=== PATIENT | male | born 1955 | race Caucasian/White ===

== ENCOUNTER 2021-07-13 07:32 | Outpatient (REF) | payer MEDICARE, OTHER, SELFPAY ==
[2021-07-13 11:21] LABS: MANUAL DIFF FLAG NO
[2021-07-13 11:41] LABS: Basophils Percent Auto 0.5 % (0-2); Eosinophils Absolute Auto 0.1 X10*3/uL (0.0-0.4); Hematocrit 41.4 % (42-52); Hemoglobin 13.6 g/dl (14.0-18.0); Imm Gran Abs Auto 0.01 X10*3/uL (0.00-0.03); Imm Gran Pct Auto 0.3 % (0.0-0.4); Lymphocytes Absolute Auto 1.1 X10*3/uL (1.2-4.9); Lymphocytes Percent Auto 29.5 % (20-40); Mean Corpuscular HGB Conc 32.9 g/dl (31.0-36.0); Mean Corpuscular Hemoglobin 28.9 pg (27.0-33.0); Mean Corpuscular Volume 87.9 fL (80-98); Mean Platelet Volume 10.1 fL (9.4-12.4); Monocytes Absolute Auto 0.6 X10*3/uL (0.1-1.2); Monocytes Percent Auto 14.9 % (2-11); Neutrophils Absolute Auto 1.9 X10*3/uL (2.0-8.3); Neutrophils Percent Auto 51.8 % (45-73); Platelet Count 210 X10*3/uL (160-400); Red Blood Count 4.71 X10*6/uL (4.60-5.80); Red Cell Distribution Width 13.7 % (11.0-16.0); White Blood Count 3.7 X10*3/uL (4.8-10.8)
[2021-07-13 14:45] LABS: Vitamin D 25-OH Total 23.3 ng/mL (>30)
[2021-07-13 14:50] LABS: Alanine Aminotransferase 24 U/L (0-40); Albumin Level 4.1 g/dL (3.5-5.0); Alkaline Phosphatase 49 U/L (39-117); Anion Gap 10 (12-20); Aspartate Amino Transferase 21 U/L (5-37); Bilirubin Total 0.6 mg/dL (0.0-1.0); Blood Urea Nitrogen 18 mg/dL (9-16); Calcium 8.7 mg/dL (8.4-10.2); Carbon Dioxide 25 mmol/L (22-29); Chloride 110 mmol/L (96-108); Cholesterol 224 mg/dL; Estimated Glomerular Filt Rate > 60; Glucose Fasting 106 mg/dL (60-99); HDL Cholesterol 48 mg/dL; LDL Cholesterol Calculated 153 mg/dl; Potassium 4.1 mmol/L (3.3-5.1); Sodium 141 mmol/L (135-145); Total Protein 6.4 g/dL (6.5-8.0); Triglycerides 115 mg/dL
[2021-07-13 15:17] LABS: Prostate Specific Antigen 0.63 ng/mL (<0.05-4.0)
[2021-07-14 04:45] LABS: ~HepC Num1 0.06 S/CO (0.00-0.79); ~Hepatitis C Antibody Nonreactive (Nonreactive)
== END 2021-07-13 07:33 | disposition home or self-care (01) ==
LOC: HO.MANLDS 07:32
PROVIDERS: PCP Internal Medicine; Visit Provider Internal Medicine
DX: Z00.00 Encounter for general adult medical examination without abnormal findings (principal); Z12.5 Encounter for screening for malignant neoplasm of prostate
CPT/HCPCS: 36415; 80053; 80061; 82306; 84153; 85025; 86803

== ENCOUNTER 2022-07-19 07:42 | Outpatient (REF) | payer MEDICARE, OTHER, SELFPAY ==
[2022-07-19 11:36] LABS: Cholesterol 202 mg/dL; HDL Cholesterol 46 mg/dL; LDL Cholesterol Calculated 139 mg/dl; Triglycerides 87 mg/dL
[2022-07-19 11:58] LABS: Prostate Specific Antigen 0.57 ng/mL (<0.05-4.0); Vitamin D 25-OH Total 26.5 ng/mL (>30)
== END 2022-07-19 07:43 | disposition home or self-care (01) ==
LOC: HO.MANLDS 07:42
PROVIDERS: Visit Provider Internal Medicine
DX: Z00.00 Encounter for general adult medical examination without abnormal findings (principal); Z12.5 Encounter for screening for malignant neoplasm of prostate
CPT/HCPCS: 36415; 80061; 82306; 84153

== ENCOUNTER 2024-07-25 06:37 | Outpatient (REF) | payer MEDICARE, OTHER, SELFPAY ==
--- NOTE | ~2024-07-25 | XR_ITS ---
EXAMINATION: XR KNEE, RIGHT CLINICAL INFORMATION: Right knee pain COMPARISON: None available. TECHNIQUE: Three views of the right knee. FINDINGS: No fracture or malalignment. Medial compartment narrowing and small degenerative cyst of the medial tibia peripherally. Small marginal osteophytes. No joint effusion. Probable small loose body in the posterior joint recess. XR/XR knee RT 3V IMPRESSION: Mild to moderate medial compartment and mild patellofemoral compartment osteoarthritis. No acute osseous abnormality. Electronically signed by: Vlad Olea MD 07/25/2024 08:52 AM EDT
[2024-07-25 07:05] LABS: MANUAL DIFF FLAG NO
[2024-07-25 07:58] LABS: Basophils Percent Auto 0.9 % (0-2); Eosinophils Absolute Auto 0.2 X10*3/uL (0.0-0.4); Eosinophils Percent Auto 3.6 % (0-4); Hematocrit 42.2 % (42.0-52.0); Hemoglobin 14.2 g/dl (14.0-18.0); Imm Gran Abs Auto 0.01 X10*3/uL (0.00-0.03); Imm Gran Pct Auto 0.2 % (0.0-0.4); Lymphocytes Absolute Auto 1.3 X10*3/uL (1.2-4.9); Lymphocytes Percent Auto 29.8 % (20-40); Mean Corpuscular HGB Conc 33.6 g/dl (31.0-36.0); Mean Corpuscular Hemoglobin 29.2 pg (27.0-33.0); Mean Corpuscular Volume 86.8 fL (80.0-98.0); Mean Platelet Volume 9.9 fL (9.4-12.4); Monocytes Absolute Auto 0.5 X10*3/uL (0.1-1.2); Monocytes Percent Auto 11.2 % (2-11); Neutrophils Absolute Auto 2.4 x10*3/uL (2.0-8.3); Neutrophils Percent Auto 54.3 % (45-73); Platelet Count 231 X10*3/uL (160-400); Red Blood Count 4.86 X10*6/uL (4.60-5.80); Red Cell Distribution Width 13.8 % (11.0-16.0); White Blood Count 4.5 X10*3/uL (4.8-10.8)
[2024-07-25 08:23] LABS: Alanine Aminotransferase 16 U/L (0-40); Albumin Level 4.3 g/dL (3.5-5.0); Alkaline Phosphatase 49 U/L (39-117); Anion Gap 12 (12-20); Aspartate Amino Transferase 17 U/L (5-37); Bilirubin Total 0.5 mg/dL (0.0-1.0); Blood Urea Nitrogen 18 mg/dL (9-16); Carbon Dioxide 23 mmol/L (22-29); Chloride 109 mmol/L (96-108); Cholesterol 210 mg/dL (<200); Estimated Glomerular Filt Rate > 60; Glucose Random 106 mg/dL (60-115); HDL Cholesterol 47 mg/dL (>40); LDL Cholesterol Calculated 136 mg/dL (<100); Potassium 3.9 mmol/L (3.3-5.1); Sodium 140 mmol/L (135-145); Triglycerides 137 mg/dL (<150)
[2024-07-25 08:43] LABS: Prostate Specific Antigen 0.71 ng/mL (<0.05-4.0); Vitamin B12 371 pg/mL (200-900)
== END 2024-07-25 06:38 | disposition home or self-care (01) ==
LOC: HO.XRAY 06:37
PROVIDERS: PCP Internal Medicine; Visit Provider Internal Medicine
DX: M25.561 Pain in right knee (principal); E78.00 Pure hypercholesterolemia, unspecified; Z12.5 Encounter for screening for malignant neoplasm of prostate; Z00.01 Encounter for general adult medical examination with abnormal findings
CPT/HCPCS: 36415; 73562; 80053; 80061; 82607; 84153; 85025

== ENCOUNTER 2025-07-30 11:35 | Outpatient (REF) | payer MEDICARE, OTHER, SELFPAY ==
--- OUTSIDE RECORDS SUMMARY | 2025-07-30 14:41 | XMS_ITS | Continuity of Care Document ---
Author Organization [facility] Address [address] [place] [address] [place] [address] Assessment Encounter Date Assessment Date Assessment LastModified by Organization Details LastModified Time 07/30/2025 07/30/2025 Patient presente d to office today for their Medicare Annual Wellness Visit. Education was provided on healthy nutrition, including a diet rich in fruits and vegetables, minimizing simple carbohydrates, salt, and saturated fats. Encouraged regular cardiovascular exercise such as walking at least 30 minutes daily, 5 times per week. Emphasized preventive health measures and educated pt on fall prevention and community-based lifestyle interventions to help reduce health risks and promote healthy living. Not available 07/09/2025 14:14:08 Plan of Treatment Reminders Order Date Submit Date Provider Last Modified By Organization Details Last Modified Time Details Appointments MEDICARE ANNUAL WELLNESS 2024 11:00A M DR MURRAY Not available Not available Not available Lab PSA, serum or plasma 2024 025 [facility], [address] [place] [address], [id number], 07/30/2025 11:29:34 lipid panel, blood 2024 025 [facility], [address] [place] [address], [id number], 07/30/2025 11:29:34 hemoglobi n, gastroint estinal, stool 2024 025 [facility], [address] [place] [address], [id number], 07/30/2025 11:29:34 CBC w/ auto diff 2024 025 [facility], [address] [place] [address], [place], [id number], 07/30/2025 11:29:34 CMP, serum or plasma 2024 025 [facility], [address], [place], [id number], 07/30/2025 11:29:34 Referral None recorded. Procedures None recorded. Surgeries None recorded. Imaging None recorded. Medication Orders None recorded. Patient TargetsNo targets recorded. Patient Instructions Encounter Date Encounter Id Patient Instructions Last Modified By Organization Details Last Modified Time 07/30/2025 [id number] advance care planning: care instructions [email or web address] Not available 07/30/2025 11:28:16 Discussed and explained advance directives such as standard forms to the . Face to face discussion lasted for a duration of ___ minutes. Not available 07/09/2025 14:14:08 Reason for Referral None Reported. Problems Name Problem SNOMED Code Status Onset Date Resolution Date Notes Provider Name and Address Organization Details Recorded Time Internal hemorrho ids 32475964 Active 2017 Peyton balbuena [facility] 8 08:41:58 Tear of meniscus of knee 540385487 Active 2017 repaired Peyton balbuena [facility] 8 08:42:12 Family history of malignan t neoplasm of prostate 388682576 Active 2017 Peyton balbuena [facility] 8 08:42:22 Hypercho lesterol emia 24279912 Active 2017 Giacomo Murray DO [address] [place], [address], [facility] 5 11:24:54 Pain of right knee joint 80434864879 4100 Active 2023 Giacomo Murray DO [address] [place], [address], [place] [facility] 4 10:49:43 Benign prostati c hyperpla jordy without outflow obstruct ion 853734739 Active 2024 Giacomo Murray [address] [place], [address], [facility] 5 11:27:55 Tick bite 26123101 Active 2024 Giacomo MurrayDO [address] [place], [address], [facility] 11:52:59 Problem Notes None recorded. Medical Equipment None Reported. Allergies No known drug allergies Medications Name Sig Start Date Stop Date Status Note LastModified by Organization Details LastModified Time penicillin V potassium 500 mg tablet 05/17 completed Not Available Not Available Not Available halobetasol propionate 0.05 % topical cream APPLY A THIN LAYER TO THE AFFECTED AREA(S) BY TOPICAL ROUTE ONCE DAILY DO NOT EXCEED 50 GRAMS PER WEEK OR 2 WEEKS DURATION 12/01 completed Not Available Not Available Not Available doxycycline hyclate 100 mg tablet Take 1 tablet twice a day by oral route for 10 days. 2024 active Not Available Not Available Not Avai lable Boostrix Tdap 2.5 Lf unit-8 mcg-5 Lf/0.5 mL intramuscul ar syringe 12/27 completed Not Available Not Available Not Available Shingrix (PF) 50 mcg/0.5 mL intramuscul ar suspension, kit 12/27 completed Not Available Not Available Not Available Vitals Date Recorded Body height Body mass index (BMI) Body weight Heart rate Oxygen saturation Oxygen saturation in Arterial blood by Pulse oximetry Systolic And Diastolic Provider Name and Address Organization Details Last Updated DateTime 5 170.18 cm 29.1 kg/m2 07160.4 6 g 46 /min 98 % 98 % 154/96 mm[Hg] Laury Schulz [facility] 5 10:54:54 Social History Question Answer Notes LastModified by Organizat ion Details LastModified Time Tobacco Smoking Status Never Smoker Not Available [employer] 08/26/2020 03:36:24 What Was The Date Of Your Most Recent Tobacco Screening? 07/30/2025 [email or web address] Information not available 07/30/2025 Sex: Unknown Functional Status Question Answer Note LastModified by Organization D etails LastModified Time Do you or have you ever used any other forms of tobacco or nicotine? No [email or web address] Information not available 07/19/2023 Mental Status None recorded. Family History Nothing Reported. Medical History No medical history recorded. Immunizations Vaccine Type Date Status Note Provider Nam e and Address Organization Details Recorded Time COVID-19, mRNA, LNP-S, PF, 30 mcg/0.3 mL dose 1 completed SHERRON balbuena [facility] 07/13/2022 08:48:01 Influenza, split virus, quadrivalent, preservative 9 completed SHERRON balbuena [facility] 07/13/2022 08:48:01 Tdap 9 olivia balbuena [facility] 07/10/2019 09:06:27 Pneumococcal conjugate PCV 13 9 completed SHERRON balbuena [facility] 07/13/2022 08:48:01 zoster live 9 completed Peyton balbuena [facility] 07/10/2019 09:06:58 Past Encounters Encounter ID Performer Location Encounter Start Date Encounter Closed Date Diagnosis/Indication Diagnosis SNOMED-CT Code Diagnosis ICD10 Code Diagnosis IMO Codes Diagnosis Note [id number] Giacomo Murray [facility] [address] [address] 07/30/2025 10:25:25 07/30/2025 11:42:43 Screening for cardiovascular system disease 535386540 Z13.6 will chk lab Screening for malignant neoplasm of colon 366762875 Z12.11 utd Depression screening 171 390821 Z13.31 neg Hypercholesterolemia 136 55005 E78.00 mild but is sl elevated will be better with diet after long discussion LDL 141 will see him in 6 months and rechk lab cholestero l is unchanged from last year told him he really needs to be more careful Preventive procedure 169 057576 Z00.00 [id number] no concerns today he states that he will work on diet and exercise Benign pro static hyperplasia without outflow obstruction 156889913 N40.0 [id number] Health Concerns Section Related Observation LastModified by Organization Detai ls LastModified Time None Recorded Concern Status LastModified by Organization Details LastModified Time None Recorded Payers Encounter Date Sequence Insurance Name Policy Number Policy Kidd Covered Member ID Kidd Member ID Guarantor Name 07/30/2025 2 [id number] Mirella Alvarezmarco antoniojosefina [id number] Suhas Eusebio 07/30/2025 1 [place]IC[place] [employer] Suhas Kaplan [id number] Suhas Kaplan Notes Date Note Type Note Provider Name a nd Address Organization Details Recorded Time 5 text/html Medicare Annual Wellness VisitReported by PatientSocial/Behavio ral HistoryFor diet and nutrition, patient reportshealthy diet. For fracture risk, patient reportsno history of fractures,no recent explained fracture,no sudden unexplained fractures, andno previous musculoskeletal injuries. For physical activity, patient reportsexercises on a regular basis,recent increase in physical activity, andgood physical condition.Mental Status:For depression risk, patient reportsnever feels sad, empty, or tearful,no loss of interest in activities,no significant changes in weight,no sleep disturbances or insomnia,no agitation,no loss of energy,no feelings of worthlessness or guilt,no thoughts of suicide,no history of depression, andno history of mood disorders. For orientation, patient reportsno disorientation to time,no disorientation to date, andno disorientation to place. For concentration and memory, patient reportsno decreased concentrating ability,no memory lapses or loss, anddoes not forget words. For speech/motor difficulties, patient reportsno speech difficulties,no difficulty expressing formulated concepts,no difficulty with fine manipulative tasks,no difficulty writing/copying,no slowed reaction time, anddoes not knock things over when trying to pick them up.Functional AbilityFor hearing, patient reportsno loss of hearing. For vision, patient reportsno vision problems. For activities of daily living, patient reportsable to bathe with limited or no assistance,able to contol urination and bowels,able to dress with limited or no assistance,able to feed self with limited or no assistance,able to get out of chair or bed with limited or no assistance,able to groom with limited or no assistance, andable to toilet with limited or no assistance. For instrumental activities of daily living, patient reportsable to do house work with limited or no assistance,able to grocery shop with limited or no assistance,able to manage medications with limited or no assistance,able to manage money with limited or no assistance,able to prepare meals with limited or no assistance, andable to use the phone with limited or no assistance. For falls risk assessment, patient reportsno frequent falls while walking,no fall in the past year,no fall since last visit, andno dizziness/vertigo. For home safety, patient reportsno unsafe maday hazzards,no unsafe stairs,no unsafe gas appliances,working smoke/co detectors,wears protective head gear for biking/high velocity,use of seatbelts,practicing 'safer sex',no vision or hearing loss while driving,no fire arms,has hand bars in the bathroom/shower, andgood lighting in the home.ROS as noted in the HPI here for mwv doing ok overallrelates still extremely activehaving floaters Giacomo Murray, DO [address], [place], [address], [facility] 07/30/2025 11:34:12
--- OUTSIDE RECORDS SUMMARY | 2025-07-30 14:41 | XMS_ITS | Clinical Summary ---
Author Organization [facility] Address [address] [place] [address] Phone Care Team Providers Care Painter Chassis Name Role Phone Giacomo Howard DO Primary Care Provider [phone] Social History Tobacco Use Types Packs/Day Years Used Date Smoking Tobacco: Never Assessed Education Answer Date Recorded Are you interested in more education? Not on alona e 02/18/2023 Are you concerned about learning? Not on file 02/18/2023 No 02/18/2023 No 02/18/2023 Digital Access Answer Date Recorded No 03/21/2023 No 03/21/2023 No 03/21/2023 Reliable internet access at home? Not on file 03/21/2023 Device with a working camera? Not on file Sex and Gender Information Value Date Recorded Sex Assigned at Not on file Legal Sex Male 2:00 AM EST Gender Identity Not on file Sexual Orientation Not on file Plan of Treatment Not on file Medical Devices Not on file Insurance [facility] [employer] MEDICARE SUPPLEMENT MEDICARE PART A & B [facility] [employer] MED[employer]ARE SUPPLEMENT MEDICARE PART A & B [facility] [employer] MEDICARE SUPPLEMENT MEDICARE PART A & B [facility] [employer] MEDICARE SUPPLEMENT MEDICARE PART A & B [facility] [employer] MEDICARE SUPPLEMENT MEDICARE PART A & B [facility] [employer] MEDICARE SUPPLEMENT MEDICARE PART A & B [facility] [employer] MEDICARE SUPPLEMENT MEDICARE PART A & B [employer] MEDICARE SUPPLEMENT MEDICARE PART A & B [employer] MEDICARE SUPPLEMENT MEDICARE PART A & B Care Teams Painter Chassis Relationship Specialty Start Date End Date Giacomo Howard DO [email or web address] PCP - General Internal Medicine 08/12/20 Additional Source Comments The information contained in this document represents components of the legal health record. It is not the complete legal health record.[facility]
--- OUTSIDE RECORDS SUMMARY | 2025-07-30 14:41 | XMS_ITS | Data Portability ---
Author Organization [facility], Telehealth Patient Home Address [address] [place] [address] Assessment Encounter Date Assessment Date Assessment LastModified [...] Lab PSA, serum or plasma 2024 025 [facility], [address] [place] [address], [id number], 07/30/2025 11:29:34 lipid panel, blood 2024 025 [facility], [address] [place] [address], [place], [address], 07/30/2025 11:29:34 hemoglobi n, gastroint estinal, stool 2024 025 [facility], [address] [place] [address], [address], 07/30/2025 11:29:34 CBC w/ auto diff 2024 025 [facility], [address] [place] [address], [address], 07/30/2025 11:29:34 CMP, serum or plasma 2024 025 [facility], [address] [place] [address], [address], 07/30/2025 11:29:34 lipid panel, blood 2023 024 [facility], [address] [place] [address], [address], 07/25/2024 11:18:59 CMP, serum or plasma 2023 024 [facility], [address] [place] [address], [address], 07/25/2024 11:18:59 CBC w/ auto diff 2023 024 [facility], [address] [place] [address], [address], 07/25/2024 11:19:00 PSA, serum or plasma 2023 024 [facility], [address] [place] [address], [address], 07/25/2024 11:19:00 vitamin B12, serum 2023 024 [facility], [address] [place] [address], [address], 07/25/2024 11:18:59 lipid panel, blood 2022 023 [facility], [place], [address], 07/19/2023 13:20:24 CMP, serum or plasma 2022 023 [facility], [place], [address], 07/19/2023 13:45:50 PSA, serum or plasma 2022 023 [facility], [place], [address], 07/19/2023 13:39:04 CBC 2022 023 [facility], [place], [address], 07/19/2023 09:50:44 lipid panel, blood 2021 022 [facility], [address] [place] [address], [address], 07/20/2022 11:26:10 PSA, serum or plasma 2021 022 [facility], [address] [place] [address], [address], 07/13/2022 09:20:31 vitamin D, 25-hydrox y, total, serum 2021 022 [facility], [address] [place] [address], [address], 07/13/2022 09:20:31 CMP, serum or plasma 2020 021 [facility], [address] [place] [address], [address], 07/14/2021 08:58:18 CBC w/ auto diff 2020 021 [facility], [address] [place] [address], [address], 07/14/2021 11:17:44 lipid panel, blood 2020 [facility], [address] [place] [address], [address], 07/14/2021 08:58:18 PSA, serum or plasma 2020 021 [facility], [address] [place] [address], [address], 07/14/2021 11:17:43 vitamin D, 25-hydrox y, total, serum 2020 021 [facility], [address] [place] [address], [address], 07/14/2021 11:17:44 hepatitis C Ab, serum 2020 021 [facility], [address] [place] [address], [address], 07/07/2021 10:55:48 Referral None recorded. Procedures None recorded. Surgeries None recorded. Imaging XR, knee, 3 view 2023 024 [facility] (Imaging), [address] [place] [address], [address], 07/25/2024 08:56:14 CT, heart, w/o contrast, w/ coronary calcium score 2022 023 [facility], [facility] [place], [address], 07/27/2023 08:05:51 Medication Orders None recorded. Patient TargetsNo targets recorded. Patient Instructions Encounter Date Encounter Id Patient Instructions Last Modified By Organization Details Last Modified Time 07/30/2025 [id number] advance care planning: care instructions [email or web address] Not available 07/30/2025 11:28:16 Discussed and explained advance directives such as standard forms to the . Face to face discussion lasted for a duration of ___ minutes. Not available 07/09/2025 14:14:08 Reason for Referral None Reported. Results Created Date Observation Date Name Description Value Unit Range Abnormal Flag Note LastModifiedBy Organization Detail LastModifiedTime 10/09/12 2308/03/2023 CT, heart , w/o contr ast, w/ coron hamilton calci um score No observ ation record ed. [email or web address] [facility] [address] [place], [address], 08/08/2023 13:29:41 07/25/20 24 07/25/2024 XR, knee, 3 view No observ ation record ed. [email or web address] [facility] (Medical Records) [address] [place], [address], 07/25/2024 10:49:03 Result Notes None recorded. Problems Name Problem SNOMED Code Status Onset Date Resolution Date Notes Provider Name and Address Organization Details Recorded Time Internal hemorrho ids 96591441 [facility] 08:41:58 Tear of meniscus of knee 733225579 Active 2017 repaired Peyton balbuena [facility] 8 08:42:12 Family history of malignan t neoplasm of prostate 945115206 [facility] 2017 [facility] 08:42:22 Hypercho lesterol emia 47898680 Active 2017 Giacomo Murray, [address] [place] [address], [phone], [facility] 5 11:24:54 Pain of right knee joint 44174271315 4100 Active 2023 Giacomo Murray DO [address] [place] [address], [address], [facility] 4 10:49:43 Benign prostati c hyperpla ojrdy without outflow obstruct ion 808113417 Active 2024 Giacomo Murray DO [address] [place] [address], [phone], [facility] 5 11:27:55 Tick bite 73650713 Active 2024 Giacomo Murray DO [address] [place], [address], [facility] 5 11:52:59 Problem Notes None recorded. Medical Equipment [...] height Body mass index (BMI) Body weight Oxygen saturation Oxygen saturation in Arterial blood by Pulse oximetry Heart rate Systolic And Diastolic Provider Name and Address Organization Details Last Updated DateTime 1 170.18 cm 30.2 kg/m2 19758.6 9 g 96 % 96 % 60 /min 140/80 mm[Hg] Lourdes Emmanuel [facility] 1 10:17:15 Date Recorded Body height Body mass index (BMI) Body weight Heart rate Oxygen saturation Oxygen saturation in Arterial blood by Pulse oximetry Systolic And Diastolic Provider Name and Address Organization Details Last Updated DateTime 2 170.18 cm 29.3 kg/m2 38745.4 1 g 52 /min 97 % 97 % 142/88 mm[Hg] Priya Raphael [facility] 2 08:56:19 Date Recorded Body weight Heart rate Oxygen saturation Oxygen saturation in Arterial blood by Pulse oximetry Systolic And Diastolic Provider Name and Address Organization Details Last Updated DateTime 3 42798.3 7 g 50 /min 99 % 99 % 139/80 mm[Hg] Blanca Rios [facility] 3 09:13:55 Date Recorded Body height Body mass index (BMI) Body weight Heart rate Oxygen saturation Oxygen saturation in Arterial blood by Pulse oximetry Systolic And Diastolic Provider Name and Address Organization Details Last Updated DateTime 4 170.18 cm 29.4 kg/m2 54304.3 7 g 51 /min 87 % 87 % 130/80 mm[Hg] Blanca Gabriel [facility] 4 10:16:44 Date Recorded Body height Body mass index (BMI) Body weight Heart rate Oxygen saturation Oxygen saturation in Arterial blood by Pulse oximetry Systolic And Diastolic Provider Name and Address Organization Details Last Updated DateTime 5 170.18 cm 29.1 kg/m2 49933.4 6 g 46 /min 98 % 98 % 154/96 mm[Hg] Laury Schulz [facility] Internal [facility] 5 10:54:54 Social History Question Answer Notes LastModified by Organizat ion Details LastModified Time Tobacco Smoking Status Never [facility]oker Not Available [facility] 03:36:24 What Was The Date Of Your Most Recent Tobacco Screening? 07/30/2025 [email or web address] Information not available 07/30/2025 Sex: Unknown Functional Status Question Answer Note LastModified by Organization D etails LastModified Time Do you or have you ever used any other forms of tobacco or nicotine? No [email or web address] Information not available 07/19/2023 Mental Status None recorded. Family History Nothing Reported. Medical History No medical history recorded. Immunizations Vaccine Type Date Status Note Provider Nam e and Address Organization Details Recorded Time COVID-19, mRNA, LNP-S, PF, 30 mcg/0.3 mL dose 1 completed SHERRON balbuena [facility] 07/13/2022 08:48:01 Influenza, split virus, quadrivalent, preservative 9 completed SHERRON balbuena [facility] 07/13/2022 08:48:01 Tdap 9 completed Peyton balbuena [facility] 07/10/2019 09:06:27 Pneumococcal conjugate PCV 13 9 completed SHERRON balbuena [facility] 07/13/2022 08:48:01 zoster live 9 completed Peyton balbuena [facility] 07/10/2019 09:06:58 Past Encounters Encounter ID Performer Location Encounter Start Date Encounter Closed Date Diagnosis/Indication Diagnosis SNOMED-CT Code Diagnosis ICD10 Code Diagnosis IMO Codes Diagnosis Note [id number] Giacomo Murray [facility] [address] [facility] [address] 05/17/2018 13:47:25 05/17/2018 15:03:52 Hypercholesterolemia 09652965 E78.00 mild but is sl elevated will be better with diet after long discussion Eczema 57217649 L30.9 [id number] Giacomo Murray [facility] [address] [address] 12/01/2018 09:09:41 12/01/2018 09:42:44 Hypercholesterolemia 85669389 E78.00 mild but is sl elevated will be better with diet after long discussion LDL 141 will see him in 6 months and rechk lab [id number] Giacomo Murray [facility] [address] [facility] [address] [address] 06/01/2019 08:58:44 06/01/2019 10:37:20 Hypercholesterolemia 26478401 E78.00 mild but is sl elevated will be better with diet after long discussion LDL 141 will see him in 6 months and rechk lab cholestero l is unchanged from last year told him he really needs to be more careful Hepatitis C screening 41 0212348 Z11.59 Active or passive immunization 515718406 Z23 will get at pharmacy [id number] Giacomo Murray [facility] Internal [facility] [address] [facility] [address] [address] 12/28/2019 11:33:17 12/28/2019 12:12:51 Adult health examination 598642083 Z00.00 no concerns today he states that he will work on diet and exercise Active or passive immunization 387841897 Z23 will get at pharmacy Hepatitis C screening 41 6562050 Z11.59 [id number] Giacomo Murray [facility] Internal Medicine [address] [facility] [address] [address] 07/07/2021 10:07:32 07/07/2021 15:18:06 Active or passive immunization 254392097 Z23 will get at pharmacy Adult heal th examination 444271969 Z00.00 no concerns today he states that he will work on diet and exercise [id number] Giacomo Murray, [facility] Internal Medicine [address] [facility] [address] 07/13/2022 08:47:41 07/13/2022 09:20:10 Active or passive immunization 920338419 Z23 will get at pharmacy Adult [facility] th examination 079848594 Z00.00 no concerns today he states that he will work on diet and exercise [id number] Giacomo Murray, [facility] Internal Medicine [address] [address] 07/19/2023 09:09:31 07/19/2023 09:56:29 Hypercholesterolemia 85913990 E78.00 mild but is sl elevated will be better with diet after long discussion LDL 141 will see him in 6 months and rechk lab cholestero l is unchanged from last year told him he really needs to be more careful [id number] Giacomo Murray [facility] Internal Medicine [address] [address] 07/24/2024 10:09:31 07/24/2024 10:54:46 Active or passive immunization 767933263 Z23 will get at pharmacy Adult [facility] th examination 425277454 Z00.01 no concerns today he states that he will work on diet and exercise Hypercholesterolemia 136 94396 E78.00 mild but is sl elevated will be better with diet after long discussion LDL 141 will see him in 6 months and rechk lab cholestero l is unchanged from last year told him he really needs to be more careful Depression screening 171 504342 Z13.31 neg Pain of ri ght knee joint 4027577771 90094 M25.561 [id number] Giacomo Murray [facility] Internal Medicine [address] [address] 07/30/2025 10:25:25 07/30/2025 11:42:43 Screening for cardiovascular system disease 447611421 Z13.6 will chk lab Screening for malignant neoplasm of colon 024295121 Z12.11 utd Depression screening 171 698422 Z13.31 neg Hypercholesterolemia 136 29919 E78.00 mild but is sl elevated will be better with diet after long discussion LDL 141 will see him in 6 months and rechk lab cholestero l is unchanged from last year told him he really needs to be more careful Preventive procedure 169 482505 Z00.00 06415946 no concerns today he states that he will work on diet and exercise Benign pro static hyperplasia without outflow obstruction 014317208 N40.0 3001128 Health Concerns Section Related Observation LastModified by Organization Detai ls LastModified Time None Recorded Concern Status LastModified by Organization Details LastModified Time None Recorded Advance Directives Directive None Recorded Payers Insurance Date Sequence Insurance Name Policy Number Policy Kidd Covered Member ID Kidd Member ID Guarantor Name 07/27/2025 2 [facility] [id number] Mirella Daniel Eusebio [id number] Suhas Kaplan 06/01/2019 1 [facility] [employer] - [employer] [id number] Mirella Daniel Eusebio [id number] Suhas Kaplan 07/29/2025 1 MEDICARE B-[place]: [facility] Suhas Strauss Eusebio [id number] Suhas Kaplan Notes Date Note Type Note Provider Name a nd Address Organization Details Recorded Time 1 text/html Annual WellnessReported by PatientSocial/Behavio ral HistoryFor diet and nutrition, patient reportshealthy diet. For fracture risk, patient reportsno history of fractures,no recent explained fracture,no sudden unexplained fractures, andno previous musculoskeletal injuries. For physical activity, patient reportsexercises on a regular basis,recent increase in physical activity, andgood physical condition. For additional lifestyle factors, patient reportsno tobacco use,no alcohol intake, andstopped drinking alcohol.Mental Status:For depression risk, patient reportsnever feels sad, empty, or tearful,no loss of interest in activities,no significant changes in weight,no sleep disturbances or insomnia,no agitation,no loss of energy,no feelings of worthlessness or guilt,no thoughts of suicide,no history of depression, andno history of mood disorders.Functional AbilityFor hearing, patient reportsno loss of hearing. For vision, patient reportsno vision problems.ROS as noted in the [facility] Giacomo Murray [address], [address], [facility] 07/07/2021 10:55:15 2 text/html Annual WellnessReported by PatientSocial/Behavio ral HistoryFor diet and nutrition, patient reportshealthy diet. For fracture risk, patient reportsno history of fractures,no recent explained fracture,no sudden unexplained fractures, andno previous musculoskeletal injuries. For physical activity, patient reportsexercises on a regular basis,recent increase in physical activity, andgood physical condition. For additional lifestyle factors, patient reportsno tobacco use,no alcohol intake, andstopped drinking alcohol.Mental Status:For depression risk, patient reportsnever feels sad, empty, or tearful,no loss of interest in activities,no significant changes in weight,no sleep disturbances or insomnia,no agitation,no loss of energy,no feelings of worthlessness or guilt,no thoughts of suicide,no history of depression, andno history of mood disorders.Functional AbilityFor hearing, patient reportsno loss of hearing. For vision, patient reportsno vision problems.recently seen by dermatologistROS as noted in the [facility] Giacomo Murray [address], [address], [facility] 07/13/2022 09:16:25 3 text/html Annual WellnessReported by PatientSocial/Behavio ral HistoryFor diet and nutrition, patient reportshealthy diet. For fracture risk, patient reportsno history of fractures,no recent explained fracture,no sudden unexplained fractures, andno previous musculoskeletal injuries. For physical activity, patient reportsexercises on a regular basis,recent increase in physical activity, andgood physical condition. For additional lifestyle factors, patient reportsno tobacco use,no alcohol intake, andstopped drinking alcohol.Mental Status:For depression risk, patient reportsnever feels sad, empty, or tearful,no loss of interest in activities,no significant changes in weight,no sleep disturbances or insomnia,no agitation,no loss of energy,no feelings of worthlessness or guilt,no thoughts of suicide,no history of depression, andno history of mood disorders.Functional AbilityFor hearing, patient reportsno loss of hearing. For vision, patient reportsno vision problems.recently seen by cigar head pegger no issuesROS as noted in the HPI relates has had an occasional bout of indigestion with belching and midsternal discomfort but this has been a pattern for years Giacomo ArechigaElisabeth TserichDO [address] [place] [address], [address], [facility] 07/19/2023 09:48:08 4 text/html Annual WellnessReported by PatientSocial/Behavio ral HistoryFor diet and nutrition, patient reportshealthy diet. For fracture risk, patient reportsno history of fractures,no recent explained fracture,no sudden unexplained fractures, andno previous musculoskeletal injuries. For physical activity, patient reportsexercises on a regular basis,recent increase in physical activity, andgood physical condition. For additional lifestyle factors, patient reportsno tobacco use,no alcohol intake, andstopped drinking alcohol.Mental Status:For depression risk, patient reportsnever feels sad, empty, or tearful,no loss of interest in activities,no significant changes in weight,no sleep disturbances or insomnia,no agitation,no loss of energy,no feelings of worthlessness or guilt,no thoughts of suicide,no history of depression, andno history of mood disorders.Functional AbilityFor hearing, patient reportsno loss of hearing. For vision, patient reportsno vision problems.ROS as noted in the HPI Giacomo ArechigaElisabeth Murray DO [address] [place] [address], [address], [facility] 07/24/2024 10:52:03 5 text/html Medicare Annual Wellness VisitReported by [...] extremely activehaving floaters Giacomo Murray, DO [address] [facility], [place], [address], [facility] 07/30/2025 11:34:12
--- OUTSIDE RECORDS SUMMARY | 2025-07-30 14:41 | XMS_ITS | Encounter Summary ---
Author Organization [facility] Address [address] [place] [address] Phone Care Team Providers Care Organic Chemistry Professor Name Role Phone Unknown, Unknown Primary Care Provider Giacomo Monahan DO Primary Care Provider [phone] Encounter Details Date Type Department Care Team (Late st Contact Info) Description 02/15/2018 Transcribe Orders [facility] [address] [place] [address] Giacomo Howard DO [address] [facility] [address] [place], [place] [id number] Elevated prostate specific antigen (PSA) (Primary Dx) Social History Tobacco Use Types Packs/Day Years Used Date Smoking Tobacco: Never Assessed Sex and Gender Information Value Date Recorded Sex Assigned at Not on file Legal Sex Male 2:00 AM EST Gender Identity Not on file Sexual Orientation Not on file documented as of this encounter Plan of Treatment Not on file documented as of this encounter Results * PSA (screening) (02/15/2018 10:36 AM EDT) PSA 1.55 0 - 4.00 ng/mL [facility] Blood 02/15/2018 10:3 6 AM EDT 02/15/2018 10:38 AM EDT us Giacomo Howard DO LAB BLOOD ORDERABLES Final Resul t [facility] [address] [place] [address] documented in this encounter Visit Diagnoses Diagnosis Elevated prostate specific antigen (PSA)- Primary documented in this encounter Care Teams Organic Chemistry Professor Relationship Specialty Start Date End Date Unknown, Unknown, MD PCP - General 02/15/18 08/11/20 Giacomo Howard DO [email or web address] PCP - General Internal Medicine 08/12/20 documented as of this encounter Additional Source Comments The information contained in this document represents components of the legal health record. It is not the complete legal health record.[facility]
--- OUTSIDE RECORDS SUMMARY | 2025-07-30 14:41 | XMS_ITS | Encounter Summary ---
Author Organization [facility] Address [address] [place], [place] [id number] Phone Care Team Providers Care Art Educator Name Role Phone Unknown, Unknown Primary Care Provider Giacomo Monahan DO Primary Care Provider [phone] Encounter Details Date Type Department Care Team (Late st Contact Info) Description 08/11/2020 Ancillary Orders Virtual Department [address] [place] [address] Jasmeet Felder DC [address] [place] [phone] Low back pain, unspecified back pain laterality, unspecified chronicity, unspecified whether sciatica present; Right hip pain Social History Tobacco Use Types Packs/Day Years Used Date Smoking Tobacco: Never Assessed Sex and Gender Information Value Date Recorded Sex Assigned at Not on file Legal Sex Male 2:00 AM EST Gender Identity Not on file Sexual Orientation Not on file documented as of this encounter Plan of Treatment Not on file documented as of this encounter Results * XR HIP 2 VW RIGHT PLUS PELVIS (08/13/2020 10:52 AM EDT) Anatomical Region Laterality Modality Hip Right Computed Radiogr aphy 08/13/2020 3:06 PM EDT Impressions 08/13/2020 3:07 PM EDT Minimal degenerative changes of bilateral hip joints. Narrative 08/13/2020 3:07 PM EDT EXAM: XR HIP 2 VW RIGHT PLUS PELVIS COMPARISON: None FINDINGS: Osseous structures of the pelvis are intact, with no fracture seen. Femoral heads are properly seated within the acetabulum. Minimal degenerative changes of bilateral hip joints. Sacroiliac joints are symmetric. Mild degenerative changes at the symphysis pubis. Procedure Note Candido Boothe MD - 08/13/2020 EXAM: XR HIP 2 VW RIGHT PLUS PELVIS COMPARISON: None FINDINGS: Osseous structures of the pelvis are intact, with no fracture seen.Femoral heads are properly seated within the acetabulum. Minimaldegenerative changes of bilateral hip joints. Sacroiliac joints aresymmetric. Mild degenerative changes at the symphysis pubis. IMPRESSION: Minimal degenerative changes of bilateral hip joints. Jasmeet Felder DC IMG XR PELVIS Final Res ult * XR LUMBOSACRAL SPINE 4 OR MORE VIEWS (08/13/2020 10:51 AM EDT) Anatomical Region Laterality Modality L-spine Computed Radiogr aphy 08/13/2020 3:08 PM EDT Impressions 08/13/2020 3:09 PM EDT 1.Grade 1 anterolisthesis of L4 on L5. 2.Minimal retrolisthesis of L5 on S1. 3.Mild degenerative changes are more prominent at L5-S1. Narrative 08/13/2020 3:09 PM EDT EXAM: XR LUMBOSACRAL SPINE 4 OR MORE VIEWS COMPARISON: None FINDINGS: Lumbar lordosis maintained. Grade 1 anterolisthesis of L4 on L5. Minimal retrolisthesis of L5 on S1. Vertebral body heights are maintained. Mild disc space narrowing at L5-S1. Facet arthropathy at lower lumbar spine. Tiny marginal osteophytes at multiple levels. Bilateral sacroiliac joints are congruent. Procedure Note Candido Boothe MD - 08/13/2020 EXAM: XR LUMBOSACRAL SPINE 4 OR MORE VIEWS COMPARISON: None FINDINGS: Lumbar lordosis maintained. Grade 1 anterolisthesis of L4 on L5. Minimalretrolisthesis of L5 on S1. Vertebral body heights are maintained. Milddisc space narrowing at L5-S1. Facet arthropathy at lower lumbar spine.Tiny marginal osteophytes at multiple levels. Bilateral sacroiliac jointsare congruent. IMPRESSION: 1.Grade 1 anterolisthesis of L4 on L5. 2.Minimal retrolisthesis of L5 on S1. 3.Mild degenerative changes are more prominent at L5-S1. Jasmeet Felder DC IMG XR SPINE Final Res ult documented in this encounter Visit Diagnoses Diagnosis Low back pain, unspecified back pain laterality, unspecified chronicity, unspecified whether sciatica present Right hip pain Pain in joint, pelvic region and thigh Low back pain, unspecified back pain laterality, unspecified chronicity, unspecified whether sciatica present Right hip pain Pain in joint, pelvic region and thigh documented in this encounter Care Teams Art Educator Relationship Specialty Start Date End Date Unknown, Unknown, PCP - General 02/15/18 08/11/20 Giacomo Howard DO [email or web address] PCP - General Internal Medicine 08/12/20 documented as of this encounter Additional Source Comments The information contained in this document represents components of the legal health record. It is not the complete legal health record.[facility]
--- OUTSIDE RECORDS SUMMARY | 2025-07-30 14:41 | XMS_ITS | Encounter Summary ---
Author Organization [facility] Address [address] [place] [phone] Phone Care Team Providers Care Jet Operator Name Role Phone Unknown, Unknown Primary Care Provider Giacomo Monahan DO Primary Care Provider [phone] Encounter Details Date Type Department Care Team (Latest Contact Info) Description 02/28/2019 Transcribe Orders [facility] [address] [place] [phone] Juan Jose Amaya MD [address] [place] [address], [address] [address] [email or web address] Elevated prostate specific antigen (PSA) (Primary Dx) [...] of this encounter Results * PSA (screening) (02/28/2019 7:36 AM EDT) PSA 0.69 0 - 4.00 ng/mL [facility] Blood 02/28/2019 7:36 AM EDT 02/28/2019 8:04 AM EDT us Juan Jose Amaya MD LAB BLOOD ORDERABLES Final Res ult [facility] [address] [place] [address] documented in this encounter Visit Diagnoses Diagnosis Elevated prostate specific antigen (PSA)- Primary documented in this encounter Care Teams Jet Operator Relationship Specialty Start Date End Date Unknown, Unknown, MD PCP - General 02/15/18 08/11/20 Giacomo Howard DO [email or web address] PCP - General Internal Medicine 08/12/20 documented as of this encounter Additional Source Comments The information contained in this document represents components of the legal health record. It is not the complete legal health record.[facility]
[2025-07-30 17:52] LABS: MANUAL DIFF FLAG NO
[2025-07-30 18:19] LABS: Hemoglobin A1C 143.8653 umol/L; Total Hemoglobin (HGBA1C) 3656.4207 umol/L
[2025-07-30 18:23] LABS: Hematocrit 43.1 % (42.0-52.0); Hemoglobin 14.5 g/dl (14.0-18.0); Imm Gran Abs Auto 0.01 X10*3/uL (0.00-0.03); Imm Gran Pct Auto 0.2 % (0.0-0.4); Lymphocytes Absolute Auto 1.3 X10*3/uL (1.2-4.9); Mean Corpuscular HGB Conc 33.6 g/dl (31.0-36.0); Mean Corpuscular Hemoglobin 28.9 pg (27.0-33.0); Mean Corpuscular Volume 86.0 fL (80.0-98.0); NRBC Abs Auto 0.000 X10*3/uL (0.0-0.012); NRBC Pct Auto 0.0 /100WBC (0.0-0.2); Platelet Count 244 X10*3/uL (160-400); Red Blood Count 5.01 X10*6/uL (4.60-5.80); White Blood Count 5.0 X10*3/uL (4.8-10.8)
[2025-07-30 18:36] LABS: Alanine Aminotransferase 23 U/L (0-40); Albumin Level 4.7 g/dL (3.5-5.0); Alkaline Phosphatase 51 U/L (39-117); Anion Gap 14 (12-20); Aspartate Amino Transferase 32 U/L (5-37); Blood Urea Nitrogen 19 mg/dL (9-16); Calcium 9.3 mg/dL (8.4-10.2); Carbon Dioxide 26 mmol/L (22-29); Chloride 108 mmol/L (96-108); Cholesterol 242 mg/dL (<200); Estimated Glomerular Filt Rate > 60; HDL Cholesterol 51 mg/dL (>40); Potassium 4.7 mmol/L (3.3-5.1); Sodium 143 mmol/L (135-145); Total Protein 7.1 g/dL (6.5-8.0); Triglycerides 109 mg/dL (<150)
[2025-07-30 18:44] LABS: Prostate Specific Antigen 0.86 ng/mL (<0.05-4.0)
== END 2025-07-30 11:36 | disposition home or self-care (01) ==
LOC: HO.MANLDS 11:35
PROVIDERS: Visit Provider Internal Medicine
DX: Z00.00 Encounter for general adult medical examination without abnormal findings (principal); Z13.6 Encounter for screening for cardiovascular disorders; Z12.5 Encounter for screening for malignant neoplasm of prostate; Z13.1 Encounter for screening for diabetes mellitus; N40.0 Benign prostatic hyperplasia without lower urinary tract symptoms
CPT/HCPCS: 36415; 80053; 80061; 83036; 84153; 85025

== ENCOUNTER 2025-08-23 09:30 | Outpatient (AMB) | payer MEDICARE, OTHER, SELFPAY ==
--- NOTE | 2025-08-23 09:30 | MHC.OFFVIS ---
Vital Signs 08/23/25 09:49 Height 5 ft 7 in Weight 185 lb BMI 29.0 BP 168/77 H Blood Pressure Location Lt brachial Position Sitting Pulse 50 Intake Visit Reasons: Surgical skin removal/extra layer Intake Note: Patient is seen in office for evaluation of a skin lesion. had a export administrator at [facility] removed a mole in the chest and was told he needs a wider excision Information Specialist Required: No Accompanied by: Spouse Allergies No Known Allergies Allergy (Verified 08/23/25 09:53) Medication List - Last Reconciled 08/23/25 by Carlos Smith MD rosuvastatin 10 mg PO DAILY HPI Comments Details: 70-year-old male patient presenting for evaluation of a skin lesion excised by his export administrator on 07/05/2025. He was initially concerned about a scalp lesion however on skin examination a pigmented lesion was noted in the mid chest over the sternum. This was felt to be suspicious and a shave biopsy was performed at that time. Subsequent pathology revealed atypical intraepidermal melanocytic proliferation extending close to the tissue edge. Pathology comment: Although the findings are not sufficient to render a definitive diagnosis of a melanoma in-situ, the lesion is significantly atypical and complete removal is advised. He denies a previous history of skin cancer or melanoma. He was not previously concerned about this brown macule prior to the dermatology appointment. He presents today for consideration of wider excision of this atypical lesion. [facility] Surgical History Hx of left knee surgery Review of Systems Const All systems reviewed & are unremarkable except as noted in HPI and below Physical Exam Vital Signs: Last Vital Signs Pulse 50 08/23/25 09:49 BP 168/77 H 08/23/25 09:49 BMI result Body Mass Index 29.0 Const General: cooperative and no acute distress Nutritional Appearance: well nourished Orientation/consciousness: patient oriented x3 Limitations: no limitations HEENT Head: Yes normocephalic and Yes atraumatic Ears: hearing grossly normal bilaterally Chest Chest/axillae images:  1. Previous biopsy site is well healed with minimal scarring identified measuring approximately 3 mm in diameter. No residual melanotic changes are identified. Resp Effort & Inspection: normal respiratory effort, no audible wheezes, no cough and no respiratory distress Cardio Jugular venous distension: no JVD GI Inspection: Yes normal to inspection Skin Other: Warm, dry, no rash Neuro General: patient oriented x3 Extrem General: Yes no clubbing, cyanosis or edema Office Procedures Excision Details: Preoperative diagnosis: Atypical intraepidermal melanocytic proliferation mid chest Postoperative diagnosis: Same Procedure: Wide excision atypical intraepidermal melanocytic proliferation mid chest Surgeon: Carlos Smith MD Chief Knowledge Officer: None Anesthesia: Lidocaine 1% with epinephrine Indications for procedure: Previous excision of a melanocytic lesion mid chest revealing atypical intraepidermal melanocytic proliferation extending to the margin Operative findings: Excision site in mid chest measuring 3 mm. Lesion excised with 5 mm margins circumferentially. Specimen: Atypical intra epidermal melanocytic proliferation mid chest Estimated blood loss: 2 mL Complications: None Procedure details: Patient was brought to the procedure room and placed in a supine position. The site of surgery was confirmed by the patient. After assuring informed consent the skin was prepped with Betadine and draped in a sterile fashion. Local anesthesia was then infiltrated circumferentially in a longitudinal fashion. An elliptical incision was then created longitudinally as well and carried out through subcutaneous tissue again taking 0.5 cm margins circumferentially. Incision was carried out through subcutaneous tissue down to muscle fascia and excised off the muscle fascia. Lesion was passed off the table and sent to pathology for further examination. Light pressure was held to maintain hemostasis. Dermis was then reapproximated using interrupted 3-0 Polysorb sutures. Skin was closed using interrupted 3-0 nylon sutures. Sterile dressings consisting of 4 x 4 gauze and Tegaderm were then applied. The patient tolerated the procedure well. He was discharged to home in stable condition. 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 Pathology revealed atypical intraepidermal melanocytic proliferation extending close to the tissue edge. A wider excision with 0.5 cm margins was performed today in the office. He tolerated the procedure well and will return in 1 week for suture removal. Await pathology results. Coding Level of Care Code New Pt Level 4 (10053) Diagnoses Atypical melanocytic hyperplasia L81.8 CPT Codes Trunk/Arms/Legs - CPT: 91705-rqsft/arms/legs 1.1-2cm ([id number])
[2025-08-23 09:49] VITALS: BP 168/77; PULSE 50; BMI 29.0
--- OUTSIDE RECORDS SUMMARY | 2025-08-23 10:33 | XMS_ITS | Encounter Summary ---
Author Organization [facility] Address [address] [place] [address] Phone Care Team Providers Care Precinct Commanding Officer Name Role Phone Unknown, Unknown Primary Care Provider Giacomo Monahan DO Primary Care Provider [phone] Encounter Details Date Type Department Care Team (Latest Contact Info) Description 02/28/2019 Transcribe Orders [facility] [address] [place] [id number] Juan Jose Amaya MD [address] [place] [address], [address] [address] [email or web address] Elevated prostate specific antigen (PSA) (Primary Dx) [...] EDT) PSA 0.69 0 - 4.00 ng/mL [facility] Blood 02/28/2019 7:36 AM EDT 02/28/2019 8:04 AM EDT us Juan Jose Amaya MD LAB BLOOD ORDERABLES Final Res ult [facility] [address] [place] [address] documented in this encounter Visit Diagnoses Diagnosis Elevated prostate specific antigen (PSA)- Primary documented in this encounter Care Teams Precinct Commanding Officer Relationship Specialty Start Date End Date Unknown, Unknown, MD PCP - General 02/15/18 08/11/20 Giacomo Howard DO [email or web address] PCP - General Internal Medicine 08/12/20 documented as of this encounter Additional Source Comments The information contained in this document represents components of the legal health record. It is not the complete legal health record.[facility]
--- OUTSIDE RECORDS SUMMARY | 2025-08-23 10:33 | XMS_ITS | Encounter Summary ---
Author Organization [facility] Address [address] [place] [phone] Phone Care Team Providers Care Ordnance Mechanic Name Role Phone Unknown, Unknown Primary Care Provider Giacomo Monahan DO Primary Care Provider [phone] Encounter Details Date Type Department Care Team (Late st Contact Info) Description 02/15/2018 Transcribe Orders [facility] [address] [place] [phone] Giacomo Howard DO [address] [facility] [address] [place], [place] [id number] Elevated prostate specific antigen (PSA) (Primary Dx) [...] EDT) PSA 1.55 0 - 4.00 ng/mL [facility] Blood 02/15/2018 10:3 6 AM EDT 02/15/2018 10:38 AM EDT us Giacomo Howard DO LAB BLOOD ORDERABLES Final Resul t [facility] [address] [place] [address] documented in this encounter Visit Diagnoses Diagnosis Elevated prostate specific antigen (PSA)- Primary documented in this encounter Care Teams Ordnance Mechanic Relationship Specialty Start Date End Date Unknown, Unknown, MD PCP - General 02/15/18 08/11/20 Giacomo Howard DO [email or web address] PCP - General Internal Medicine 08/12/20 documented as of this encounter Additional Source Comments The information contained in this document represents components of the legal health record. It is not the complete legal health record.[facility]
--- OUTSIDE RECORDS SUMMARY | 2025-08-23 10:33 | XMS_ITS | Encounter Summary ---
Author Organization [facility] Address [address] [place], [place] [phone] Phone Care Team Providers Care Calf Skinner Name Role Phone Unknown, Unknown Primary Care Provider Giacomo Monahan DO Primary Care Provider [phone] Encounter Details Date Type Department Care Team (Late st Contact Info) Description 08/11/2020 Ancillary Orders Virtual Department [address] [place] [address] Jasmeet Felder DC [address] [place] [phone] Low back pain, unspecified back pain laterality, [...] thigh documented in this encounter Care Teams Calf Skinner Relationship Specialty Start Date End Date Unknown, Unknown, PCP - General 02/15/18 08/11/20 Giacomo Howard DO [email or web address] PCP - General Internal Medicine 08/12/20 documented as of this encounter Additional Source Comments The information contained in this document represents components of the legal health record. It is not the complete legal health record.[facility]
--- OUTSIDE RECORDS SUMMARY | 2025-08-23 10:33 | XMS_ITS | Clinical Summary ---
Author Organization [facility] Address [address] [place] [phone] Phone Care Team Providers Care C Unix Developer Name Role Phone Giacomo Howard DO Primary Care Provider [phone] Social History Tobacco Use Types Packs/Day Years [...] file Medical Devices Not on file Insurance [facility] [employer] MEDICARE SUPPLEMENT MEDICARE PART A & B [facility] [employer] MEDICARE SUPPLEMENT MEDICARE PART A & B [facility] [employer] MEDICARE SUPPLEMENT MEDICARE PART A & B [facility] [employer] MEDICARE SUPPLEMENT MEDICARE PART A & B [facility] [employer] MEDICARE SUPPLEMENT MEDICARE PART A & B [facility] [employer] MEDICARE SUPPLEMENT MEDICARE PART A & B [facility] [employer] MEDICARE SUPPLEMENT MEDICARE PART A & B [facility] [employer] MEDICARE SUPPLEMENT MEDICARE PART A & B [facility] [employer] MEDICARE SUPPLEMENT MEDICARE PART A & B Care Teams C Unix Developer Relationship Specialty Start Date End Date Giacomo Howard DO [email or web address] PCP - General Internal Medicine 08/12/20 Additional Source Comments The information contained in this document represents components of the legal health record. It is not the complete legal health record.[facility]
== END 2025-08-23 09:57 | disposition home or self-care (01) ==
LOC: HO.HGS 09:31
PROVIDERS: PCP Internal Medicine; Visit Provider Surgery
DX: L81.8 Other specified disorders of pigmentation (principal); D22.5 Melanocytic nevi of trunk
CPT/HCPCS: 11406; 99204

== ENCOUNTER 2025-08-23 09:30 | Outpatient (REF) | payer MEDICARE, OTHER, SELFPAY ==
--- OUTSIDE RECORDS SUMMARY | 2025-08-23 13:43 | XMS_ITS | Data Portability ---
Author Organization [facility], Telehealth Patient Home Address [address] [place] [address] Assessment Encounter Date Assessment Date Assessment LastModified [...] Organization Details Last Modified Time Details Appointments None recorded. Lab PSA, serum or plasma 2024 [facility], [address] [place] [address], [address], 11:29:34 lipid panel, blood 2024 025 [facility], [address] [place] [address], [address], 12:00:36 hemoglobin , gastrointe stinal, stool 2024 [facility], [address] [place] [address], [address], 11:29:34 CBC w/ auto diff 2024 025 [facility], [address] [place] [address], [address], 5 12:00:36 CMP, serum or plasma 2024 025 [facility], [address] [place] [address], [address], 5 12:00:36 lipid panel, blood 2023 024 [facility], [address] [place] [address], [address], 4 11:18:59 CMP, serum or plasma 2023 024 [facility], [address] [place] [address], [address], 4 11:18:59 CBC w/ auto diff 2023 024 [facility], [address] [place] [address], [address], 4 11:19:00 PSA, serum or plasma 2023 024 [facility], [address] [place] [address], [address], 4 11:19:00 vitamin B12, serum 2023 024 [facility], [address] [place] [address], [address], 4 11:18:59 lipid panel, blood 2022 023 [facility], [place], [address], 3 13:20:24 CMP, serum or plasma 2022 023 [facility], [place], [address], 3 13:45:50 PSA, serum or plasma 2022 023 [facility], [place], [address], 3 13:39:04 CBC 2022 023 [facility], [place], [address], 3 09:50:44 lipid panel, blood 2021 022 [facility], [address] [place] [address], [address], 2 11:26:10 PSA, serum or plasma 2021 022 [facility], [address] [place] [address], [address], 2 09:20:31 vitamin D, 25-hydroxy , total, serum 2021 022 [facility], [address] [place] [address], [address], 2 09:20:31 CMP, serum or plasma 2020 021 [facility], [address] [place] [address], [address], 1 08:58:18 CBC w/ auto diff 2020 021 [facility], [address] [place] [address], [address], 1 11:17:44 lipid panel, blood 2020 021 [facility], [address] [place] [address], [address], 1 08:58:18 PSA, serum or plasma 2020 021 [facility], [address] [place] [address], [address], 1 11:17:43 vitamin D, 25-hydroxy , total, serum 2020 021 [facility], [address] [place] [address], [address], 1 11:17:44 hepatitis C Ab, serum 2020 021 [facility], [address] [place] [address], [address], 1 10:55:48 Referral None recorded. Procedures None recorded. Surgeries None recorded. Imaging XR, knee, 3 view 2023 024 [facility] (Imaging), [address] [place] [address], [address], 4 08:56:14 CT, heart, w/o contrast, w/ coronary calcium score 2022 023 [facility], [address] [place], [address], 3 08:05:51 Medication Orders None recorded. Patient TargetsNo targets recorded. Patient Instructions Encounter Date Encounter Id Patient Instructions Last Modified By Organization Details Last Modified Time 07/30/2025 [id number] advance care planning: care instructions [email or web address] Not available 07/30/2025 11:28:16 Discussed and explained advance directives such as standard forms to the . Face to face discussion lasted for a duration of ___ minutes. Not available 07/09/2025 14:14:08 Reason for Referral None Reported. Results Created Date Observation Date Name Description Value Unit Range Abnormal Flag Note LastModifiedBy Organization Detail LastModifiedTime 08/03/20 23 08/03/2023 CT, heart , w/o contr ast, w/ coron hamilton calci um score No observ ation record ed. [email or web address] [facility] [address] [place], [address], 08/08/2023 13:29:41 07/25/20 24 07/25/2024 XR, knee, 3 view No observ ation record ed. [email or web address] [facility] (Medical Records) [address] [facility], [place], [address], 07/25/2024 10:49:03 Result Notes None recorded. Problems Name Problem SNOMED Code Status Onset Date Resolution Date Notes Provider Name and Address Organization Details Recorded Time Internal hemorrho ids 44525240 [facility] 8 08:41:58 Tear of meniscus of knee 359789345 Active 2017 repaired Peyton balbuena [facility] 8 08:42:12 Family history of malignan t neoplasm of prostate 051605950 Active 2017 Peyton balbuena [facility] 8 08:42:22 Hypercho lesterol emia 65232698 Active 2017 Giacomo Howard DO [address] [place] [address], [address], [facility] 5 00:16:02 Pain of right knee joint 68301155560 4100 Active 2023 Giacomo Howard DO [address] [place] [address], [phone], [facility] 4 10:49:43 Benign prostati c hyperpla jordy without outflow obstruct ion 551363878 Active 2024 Giacomo Howard DO [address] [place] [address], [address], [facility] Internal [facility] 5 11:27:55 Tick bite 98263316 Active 2024 Giacomo Howard DO [address] [place] [address], [address], [facility] 5 11:52:59 Problem Notes None [...] day by oral route for 10 days. 08/16 completed Not Available Not Available Not Available rosuvastati n 10 mg tablet TAKE 1 TABLET BY MOUTH EVERY DAY FOR 30 DAYS active Not Available Not Available No t Available Boostrix Tdap 2.5 Lf unit-8 mcg-5 Lf/0.5 [...] Updated DateTime 1 170.18 cm 30.2 kg/m2 02303.6 9 g 96 % 96 % 60 /min 140/80 mm[Hg] Lourdes Emmanuel [facility] 1 10:17:15 Date Recorded Body height Body mass index (BMI) Body weight Heart rate Oxygen saturation Oxygen saturation in Arterial blood by Pulse oximetry Systolic And Diastolic Provider Name and Address Organization Details Last Updated DateTime 2 170.18 cm 29.3 kg/m2 94808.4 1 g 52 /min 97 % 97 % 142/88 mm[Hg] Priya Raphael [facility] 2 08:56:19 Date Recorded Body weight Heart rate Oxygen saturation Oxygen saturation in Arterial blood by Pulse oximetry Systolic And Diastolic Provider Name and Address Organization Details Last Updated DateTime 3 74353.3 7 g 50 /min 99 % 99 % 139/80 mm[Hg] Blanca Rios [facility] 3 09:13:55 Date Recorded Body height Body mass index (BMI) Body weight Heart rate Oxygen saturation Oxygen saturation in Arterial blood by Pulse oximetry Systolic And Diastolic Provider Name and Address Organization Details Last Updated DateTime 4 170.18 cm 29.4 kg/m2 09121.3 7 g 51 /min 87 % 87 % 130/80 mm[Hg] Blanca Gabriel [facility] 4 10:16:44 Date Recorded Body height Body mass index (BMI) Body weight Heart rate Oxygen saturation Oxygen saturation in Arterial blood by Pulse oximetry Systolic And Diastolic Provider Name and Address Organization Details Last Updated DateTime 5 170.18 cm 29.1 kg/m2 57578.4 6 g 46 /min 98 % 98 % 154/96 mm[Hg] Laury Schulz [facility] Internal [facility] 5 10:54:54 Social History Question Answer Notes LastModified by Organizat ion Details LastModified Time Tobacco Smoking Status Never Smoker Not Available [facility] 08/26/2020 03:36:24 What Was The Date Of Your Most Recent Tobacco Screening? 07/30/2025 [email or web address] Information not available 07/30/2025 Sex: Unknown Functional Status Question Answer Note LastModified by Organization D etails LastModified Time Do you or have you ever used any other forms of tobacco or nicotine? No Information not available 07/19/2023 Mental Status None recorded. Family History Nothing Reported. Medical History No medical history recorded. Immunizations Vaccine Type Date Status Note Provider Nam e and Address Organization Details Recorded Time COVID-19, mRNA, LNP-S, PF, 30 mcg/0.3 mL dose 1 completed SHERRON balbuena [facility] 07/13/2022 08:48:01 Influenza, split virus, quadrivalent, preservative 9 completed SHERRON balbuena [facility] 07/13/2022 08:48:01 Tdap 9 completed Peyton balbuena [facility] 07/10/2019 09:06:27 Pneumococcal conjugate PCV 13 9 completed SHERRON balbuena [facility] 07/13/2022 08:48:01 zoster live 9 completed Peyton Borrego [facility] 07/10/2019 09:06:58 Past Encounters Encounter ID Performer Location Encounter Start Date Encounter Closed Date Diagnosis/Indication Diagnosis SNOMED-CT Code Diagnosis ICD10 Code Diagnosis IMO Codes Diagnosis Note [id number] Giacomo Howard [facility] Internal [facility] [address] [facility] [address] 05/17/2018 13:47:25 05/17/2018 15:03:52 Hypercholesterolemia 00454764 E78.00 mild but is sl elevated will be better with diet after long discussion Eczema 53058886 L30.9 [id number] Giacomo Howard [facility] [address] [facility] [address] 12/01/2018 09:09:41 12/01/2018 09:42:44 Hypercholesterolemia 33086999 E78.00 mild but is sl elevated will be better with diet after long discussion LDL 141 will see him in 6 months and rechk lab [id number] Giacomo Howard [facility] [address] [facility],[place] [address] 06/01/2019 08:58:44 06/01/2019 10:37:20 Hypercholesterolemia 21801005 E78.00 mild but is sl elevated will be better with diet after long discussion LDL 141 will see him in 6 months and rechk lab cholestero l is unchanged from last year told him he really needs to be more careful Hepatitis C screening 41 3385735 Z11.59 Active or passive immunization 975301486 Z23 will get at pharmacy [id number] Giacomo Howard [facility] Internal [facility] [address] [facility] [address],[place] [address] 12/28/2019 11:33:17 12/28/2019 12:12:51 Adult health examination 917646669 Z00.00 no concerns today he states that he will work on diet and exercise Active or passive immunization 604055333 Z23 will get at pharmacy Hepatitis C screening 41 8383518 Z11.59 [id number] Giacomo Howard [facility] [address] [facility] [address] [address] 07/07/2021 10:07:32 07/07/2021 15:18:06 Active or passive immunization 736129651 Z23 will get at pharmacy Adult heal th examination 441732864 Z00.00 no concerns today he states that he will work on diet and exercise [id number] Giacomo Howard [facility] [address] [facility] [address] 07/13/2022 08:47:41 07/13/2022 09:20:10 Active or passive immunization 752373823 Z23 will get at pharmacy Adult [facility] th examination 638201460 Z00.00 no concerns today he states that he will work on diet and exercise [id number] Giacomo Howard [facility] Medicine [address] [facility] [address] 07/19/2023 09:09:31 07/19/2023 09:56:29 Hypercholesterolemia 97275215 E78.00 mild but is sl elevated will be better with diet after long discussion LDL 141 will see him in 6 months and rechk lab cholestero l is unchanged from last year told him he really needs to be more careful [id number] Giacomo Howard [facility] Medicine [address] [facility] [address] 07/24/2024 10:09:31 07/24/2024 10:54:46 Active or passive immunization 422002206 Z23 will get at pharmacy Adult [facility] examination 225481134 Z00.01 no concerns today he states that he will work on diet and exercise Hypercholesterolemia 136 31913 E78.00 mild but is sl elevated will be better with diet after long discussion LDL 141 will see him in 6 months and rechk lab cholestero l is unchanged from last year told him he really needs to be more careful Depression screening 171 209177 Z13.31 neg Pain of ri ght knee joint 3041951569 86602 M25.561 [id number] Giacomo Howard [facility] Medicine [address] [facility],[place] [address] 07/30/2025 10:25:25 07/30/2025 11:42:43 Screening for cardiovascular system disease 473165151 Z13.6 will chk lab Screening for malignant neoplasm of colon 378218360 Z12.11 utd Depression screening 171 499429 Z13.31 neg Hypercholesterolemia 136 33291 E78.00 mild but is sl elevated will be better with diet after long discussion LDL 141 will see him in 6 months and rechk lab cholestero l is unchanged from last year told him he really needs to be more careful Preventive procedure 169 074912 Z00.00 56132522 no concerns today he states that he will work on diet and exercise Benign pro static hyperplasia without outflow obstruction 229942016 N40.0 7740048 Health Concerns Section Related Observation LastModified by Organization Detai ls LastModified Time None Recorded Concern Status LastModified by Organization Details LastModified Time None Recorded Advance Directives Directive None Recorded Payers Insurance Date Sequence Insurance Name Policy Number Policy Kidd Covered Member ID Kidd Member ID Guarantor Name 07/27/2025 2 [facility] INDE[facility]ITY [facility] (INDEMNITY) [id number] Mirella Daniel Eusebio [id number] Suhas Kaplan 06/01/2019 1 [facility] (INDEMNITY) [id number] Mirella Daniel Eusebio [id number] Suhas Kaplan 07/29/2025 1 MEDICARE B-[place]: [facility] [employer] Suhas Strauss Eusebio [id number] Suhas Kaplan Notes Date Note Type Note [...] reportsno vision problems.ROS as noted in the [facility] Giacomo Howard, [address], [address], [facility] 07/07/2021 10:55:15 2 text/html Annual [...] seen by dermatologistROS as noted in the [facility] Giacomo Howard, [address], [address], [facility] 07/13/2022 09:16:25 3 text/html Annual [...] vision, patient reportsno vision problems.recently seen by paint maker no issuesROS as noted in the HPI relates has had an occasional bout of indigestion with belching and midsternal discomfort but this has been a pattern for years Giacomo Howard DO [address] [place] [address], [address], [facility] 07/19/2023 09:48:08 4 text/html Annual [...] problems.ROS as noted in the HPI Giacomo Howard DO [address] [place] [address], [address], [facility] 07/24/2024 10:52:03 5 text/html Medicare [...] ok overallrelates still extremely activehaving floaters Giacomo Howard, DO [address] [facility], [place], [address], [facility] 07/30/2025 11:34:12
== END 2025-08-23 09:31 | disposition home or self-care (01) ==
LOC: HO.LAB 09:30
PROVIDERS: PCP Internal Medicine; Visit Provider Surgery
DX: L81.8 Other specified disorders of pigmentation (principal); L90.5 Scar conditions and fibrosis of skin
CPT/HCPCS: 11406; 88305; 99202

== ENCOUNTER 2025-08-30 10:39 | Outpatient (AMB) | payer MEDICARE, OTHER, SELFPAY ==
--- NOTE | 2025-08-30 10:51 | AM.OFFVISNUR ---
Intake Visit Reasons: suture removal, chest lesion Allergies No Known Allergies Allergy (Verified 08/23/25 09:53) Nursing Note Pt reports to the office for suture removal of excision site mid chest wall. Wound appears to be healing well, no redness, no swelling, no drainage, edges well approx. and closed. Pt advised he could shower. Pathology reviewed - there were some atypical cells and the path report states to consider re-excision. Will review clinically with Dr. Smith and call pt regarding the plan. Advised pt and to call mid week next week if he has not heard from me. Coding Level of Care Code Established Pt Est Pt Level 1 (80366) Patient Type Established History Problem Focused Exam Problem Focused Medical Decision Making Straight Forward Time Spent (min) 15 Comment suture removal, wound teaching, wound assessment
--- OUTSIDE RECORDS SUMMARY | 2025-08-30 12:35 | XMS_ITS | Encounter Summary ---
Author Organization [facility] Address [address] [place] [address] Phone Care Team Providers Care Health Education Assistant Name Role Phone Unknown, Unknown Primary Care Provider Giacomo Monahan DO Primary Care Provider [phone] Encounter Details Date Type Department Care Team ([facility] st Contact Info) Description 02/15/2018 Transcribe Orders [facility] [address] [place] [address] Giacomo Howard DO [address] [facility] [address] [place], [place] [address] Elevated prostate specific antigen (PSA) (Primary Dx) [...] EDT) PSA 1.55 0 - 4.00 ng/mL [facility] Blood 02/15/2018 10:3 6 AM EDT 02/15/2018 10:38 AM EDT us Giacomo Howard DO LAB BLOOD BKR ORDERABLES Final R esult [facility] [address] [place] [address] documented in this encounter Visit Diagnoses Diagnosis Elevated prostate specific antigen (PSA)- Primary documented in this encounter Care Teams Health Education Assistant Relationship Specialty Start Date End Date Unknown, Unknown, PCP - General 02/15/18 08/11/20 Giacomo Howard DO [email or web address] PCP - General Internal Medicine 08/12/20 documented as of this encounter Additional Source Comments The information contained in this document represents components of the legal health record. It is not the complete legal health record.[facility]
--- OUTSIDE RECORDS SUMMARY | 2025-08-30 12:35 | XMS_ITS | Clinical Summary ---
Author Organization [facility] Address [address] [place] [address] Phone Care Team Providers Care Representative Name Role Phone Giacomo Howard DO Primary Care Provider [phone] Social History Tobacco Use Types Packs/Day Years Used Date Smoking Tobacco: Never Assessed Education Answer Date Recorded Are you interested in more education? Not on alnoa e 02/18/2023 Are you concerned about learning? [...] file Medical Devices Not on file Insurance [employer] MEDICARE SUPPLEMENT MEDICARE PART A & B [employer] MED[employer] SUPPLEMENT MEDICARE PART A & B [employer] MED[employer] SUPPLEMENT MEDICARE PART A & B [employer] MED[employer] SUPPLEMENT MEDICARE PART A & B [employer] MED[employer] SUPPLEMENT MEDICARE PART A & B [employer] MED[employer] SUPPLEMENT MEDICARE PART A & B [employer] MED[employer] SUPPLEMENT MEDICARE PART A & B [employer] MEDICARE SUPPLEMENT MEDICARE PART A & B [employer] MED[employer] SUPPLEMENT MEDICARE PART A & B Care Teams Representative Relationship Specialty Start Date End Date Giacomo Howard DO [email or web address] PCP - General Internal Medicine 08/12/20 Additional Source Comments The information contained in this document represents components of the legal health record. It is not the complete legal health record.[facility]
--- OUTSIDE RECORDS SUMMARY | 2025-08-30 12:35 | XMS_ITS | Encounter Summary ---
Author Organization [facility] Address [address] [place] [address] Phone Care Team Providers Care Shredder Tender Name Role Phone Unknown, Unknown Primary Care Provider Giacomo Monahan DO Primary Care Provider [phone] Encounter Details Date Type Department Care Team (Latest Contact Info) Description 02/28/2019 Transcribe Orders [facility] Phleb [address] [address] Juan Jose Amaya MD [address] [place] [address], [address] [place] [address] [email or web address] Elevated prostate specific antigen (PSA) (Primary Dx) [...] EDT) PSA 0.69 0 - 4.00 ng/mL [facility] Blood 02/28/2019 7:36 AM EDT 02/28/2019 8:04 AM EDT us Juan Jose Amaya MD LAB BLOOD BKR ORDERABLES Final Result [facility] [address] [place] [address] documented in this encounter Visit Diagnoses Diagnosis Elevated prostate specific antigen (PSA)- Primary documented in this encounter Care Teams Shredder Tender Relationship Specialty Start Date End Date Unknown, Unknown, MD PCP - General 02/15/18 08/11/20 Giacomo Howard DO [email or web address] PCP - General Internal Medicine 08/12/20 documented as of this encounter Additional Source Comments The information contained in this document represents components of the legal health record. It is not the complete legal health record.[facility]
--- OUTSIDE RECORDS SUMMARY | 2025-08-30 12:36 | XMS_ITS | Encounter Summary ---
Author Organization [facility] Address [address] [place], [place] [id number] Phone Care Team Providers Care Director Graphics Name Role Phone Unknown, Unknown Primary Care Provider Giacomo Monahan DO Primary Care Provider [phone] Encounter Details Date Type Department Care Team (Late st Contact Info) Description 08/11/2020 Ancillary Orders Virtual Department [address] [place] [address] Jasmeet Felder DC [address] [place] [address] Low back pain, unspecified back pain laterality, [...] thigh documented in this encounter Care Teams Director Graphics Relationship Specialty Start Date End Date Unknown, Unknown, PCP - General 02/15/18 08/11/20 Giacomo Howard DO [email or web address] PCP - General Internal Medicine 08/12/20 documented as of this encounter Additional Source Comments The information contained in this document represents components of the legal health record. It is not the complete legal health record.[facility]
--- OUTSIDE RECORDS SUMMARY | 2025-08-30 12:36 | XMS_ITS | Data Portability ---
Author Organization [facility], Telehealth Patient Home Address [address] [place] [address] Assessment Encounter Date Assessment Date Assessment LastModified [...] recorded. Lab PSA, serum or plasma 2024 [facility], [address] [place] [address], [address], 11:29:34 lipid panel, blood 2024 025 [facility], [address] [place] [address], 437[address], 12:00:36 hemoglobin , gastrointe stinal, stool 2024 [facility], [address] [place] [address], [address], 11:29:34 CBC w/ auto diff 2024 025 [facility], [address] [place] [address], [address], 5 12:00:36 CMP, serum or plasma 2024 025 [facility], [address] [place] [address], [address], 5 12:00:36 lipid panel, blood 2023 024 [facility], [address] [place] [address], [address], 4 11:18:59 CMP, serum or plasma 2023 024 [facility], [address] [place] [address], [address], 4 11:18:59 CBC w/ auto diff 2023 024 [facility], [address] [place] [address], [address], 4 11:19:00 PSA, serum or plasma 2023 024 [facility], [address] [place] [address], [address], 4 11:19:00 vitamin B12, serum 2023 024 [facility], [address] [place] [address], [address], 4 11:18:59 lipid panel, blood 2022 023 [facility], [place], [address], 3 13:20:24 CMP, serum or plasma 2022 023 [facility], [place], [address], 3 13:45:50 PSA, serum or plasma 2022 023 [facility], [place], [address], 3 13:39:04 CBC 2022 023 [facility], [place], [address], 3 09:50:44 lipid panel, blood 2021 022 [facility], [address] [place] [address], [address], 2 11:26:10 PSA, serum or plasma 2021 022 [facility], [address] [place] [address], [address], 2 09:20:31 vitamin D, 25-hydroxy , total, serum 2021 022 [facility], [address] [place] [address], [address], 2 09:20:31 CMP, serum or plasma 2020 021 [facility], [address] [place] [address], [address], 1 08:58:18 CBC w/ auto diff 2020 021 [facility], [address] [place] [address], 279[address], 1 11:17:44 lipid panel, blood 2020 021 [facility], [address] [place] [address], [address], 1 08:58:18 PSA, serum or plasma 2020 021 [facility], [address] [place] [address], 17[address], 1 11:17:43 vitamin D, 25-hydroxy , total, serum 2020 021 [facility], [address] [place] [address], [address], 1 11:17:44 hepatitis C Ab, serum 2020 021 [facility], [address] [place] [address], [address], 1 10:55:48 Referral None recorded. Procedures None recorded. Surgeries None recorded. Imaging XR, knee, 3 view 2023 024 [facility]), [address] [place] [address], [address], 4 08:56:14 CT, heart, w/o contrast, w/ coronary calcium score 2022 023 [facility], [address] [place], [address], 3 08:05:51 Medication Orders None recorded. Patient TargetsNo targets recorded. Patient Instructions Encounter Date Encounter Id Patient Instructions Last Modified By Organization Details Last Modified Time 07/30/2025 [id number] advance care planning: care instructions [email or web address] Not [...] um score No observ ation record ed. [id number] [facility] [address] [place], [address], 08/08/2023 13:29:41 07/25/20 24 07/25/2024 XR, knee, 3 view No observ ation record ed. [email or web address] [facility] (Medical Records) [address] [facility], [place], [address], 07/25/2024 10:49:03 Result Notes None recorded. Problems Name Problem SNOMED Code Status Onset Date Resolution Date Notes Provider Name and Address Organization Details Recorded Time Internal hemorrho ids 25752478 [facility] 08:41:58 Tear of meniscus of knee 008998671 Active 2017 repaired Peyton balbuena [facility] 8 08:42:12 Family history of malignan t neoplasm of prostate 572414764 Active 2017 Peyton balbuena [facility] Medicine 8 08:42:22 Hypercho lesterol emia 33284928 Active 2017 Giacomo Howard DO [address] [place] [address], [address], [facility] 5 00:16:02 Pain of right knee joint 05377092673 4100 Active 2023 Giacomo Howard DO [address] [place] [address], [address], [facility] 4 10:49:43 Benign prostati c hyperpla jordy without outflow obstruct ion 878362628 Active 2024 Giacomo Howard DO [address] [place] [address], [address], [facility] Internal [facility] 5 11:27:55 Tick bite 91205888 Active 2024 Giacomo Howard DO [address] [place] [address], [address], [facility] 5 11:52:59 Problem Notes None [...] Updated DateTime 1 170.18 cm 30.2 kg/m2 59961.6 9 g 96 % 96 % 60 /min 140/80 mm[Hg] Lourdes Emmanuel [facility] 1 10:17:15 Date Recorded Body height Body mass index (BMI) Body weight Heart rate Oxygen saturation Oxygen saturation in Arterial blood by Pulse oximetry Systolic And Diastolic Provider Name and Address Organization Details Last Updated DateTime 2 170.18 cm 29.3 kg/m2 05329.4 1 g 52 /min 97 % 97 % 142/88 mm[Hg] Priya Raphael [facility] 2 08:56:19 Date Recorded Body weight Heart rate Oxygen saturation Oxygen saturation in Arterial blood by Pulse oximetry Systolic And Diastolic Provider Name and Address Organization Details Last Updated DateTime 3 15954.3 7 g 50 /min 99 % 99 % 139/80 mm[Hg] Blanca Rios [facility] 3 09:13:55 Date Recorded Body height Body mass index (BMI) Body weight Heart rate Oxygen saturation Oxygen saturation in Arterial blood by Pulse oximetry Systolic And Diastolic Provider Name and Address Organization Details Last Updated DateTime 4 170.18 cm 29.4 kg/m2 37437.3 7 g 51 /min 87 % 87 % 130/80 mm[Hg] Blanca Gabriel [facility] 4 10:16:44 Date Recorded Body height Body mass index (BMI) Body weight Heart rate Oxygen saturation Oxygen saturation in Arterial blood by Pulse oximetry Systolic And Diastolic Provider Name and Address Organization Details Last Updated DateTime 5 170.18 cm 29.1 kg/m2 12681.4 6 g 46 /min 98 % 98 % 154/96 mm[Hg] Laury Schulz [facility] Internal [facility] 5 10:54:54 Social History Question Answer Notes LastModified by Organizat ion Details LastModified Time Tobacco Smoking Status Never Smoker Not Available [facility] 08/26/2020 03:36:24 What Was The Date Of Your Most Recent Tobacco Screening? 07/30/2025 [email or web address] Information not available 07/30/2025 Sex: Unknown Functional Status Question Answer Note LastModified by Organization D etails LastModified Time Do you or have you ever used any other forms of tobacco or nicotine? No [email or web address] Information not available 07/19/2023 Mental Status None recorded. Family History Nothing Reported. Medical History No medical history recorded. Immunizations Vaccine Type Date Status Note Provider Nam e and Address Organization Details Recorded Time COVID-19, mRNA, LNP-S, PF, 30 mcg/0.3 mL dose 1 completed SHERRON balbuena [facility] 07/13/2022 08:48:01 Influenza, split virus, quadrivalent, preservative 9 completed SHERRON balbuena [facility] 07/13/2022 08:48:01 Tdap 9 completed Peyton balbuena [facility] 07/10/2019 09:06:27 Pneumococcal conjugate PCV 13 9 completed SHERRON balbuena [facility] 07/13/2022 08:48:01 zoster live 9 completed Peyton Borrego [facility] 07/10/2019 09:06:58 Past Encounters Encounter ID Performer Location Encounter Start Date Encounter Closed Date Diagnosis/Indication Diagnosis SNOMED-CT Code Diagnosis ICD10 Code Diagnosis IMO Codes Diagnosis Note [id number] Giacomo Howard [facility] [address] [facility] [address] 05/17/2018 13:47:25 05/17/2018 15:03:52 Hypercholesterolemia 71804515 E78.00 mild but is sl elevated will be better with diet after long discussion Eczema 46485507 L30.9 [id number] Giacomo Howard [facility] [address] [facility] [address] 12/01/2018 09:09:41 12/01/2018 09:42:44 Hypercholesterolemia 97368429 E78.00 mild but is sl elevated will be better with diet after long discussion LDL 141 will see him in 6 months and rechk lab [id number] Giacomo Howard [facility] [address] [facility] [address] 06/01/2019 08:58:44 06/01/2019 10:37:20 Hypercholesterolemia 51333697 E78.00 mild but is sl elevated will be better with diet after long discussion LDL 141 will see him in 6 months and rechk lab cholestero l is unchanged from last year told him he really needs to be more careful Hepatitis C screening 41 1084055 Z11.59 Active or passive immunization 334323747 Z23 will get at pharmacy [id number] Giacomo Howard [facility] [address] [facility] [address] [address] 12/28/2019 11:33:17 12/28/2019 12:12:51 Adult health examination 882711118 Z00.00 no concerns today he states that he will work on diet and exercise Active or passive immunization 130797196 Z23 will get at pharmacy Hepatitis C screening 41 4600987 Z11.59 [id number] Giacomo Howard [facility] [address] [facility] [address] [address] 07/07/2021 10:07:32 07/07/2021 15:18:06 Active or passive immunization 653044152 Z23 will get at pharmacy Adult heal th examination 363515956 Z00.00 no concerns today he states that he will work on diet and exercise [id number] Giacomo Howard [facility] [address] [facility] [place] [address] 07/13/2022 08:47:41 07/13/2022 09:20:10 Active or passive immunization 484777643 Z23 will get at pharmacy Adult [facility] th examination 449338415 Z00.00 no concerns today he states that he will work on diet and exercise [id number] Giacomo Howard [facility] [address] [facility] [address] 07/19/2023 09:09:31 07/19/2023 09:56:29 Hypercholesterolemia 79986857 E78.00 mild but is sl elevated will be better with diet after long discussion LDL 141 will see him in 6 months and rechk lab cholestero l is unchanged from last year told him he really needs to be more careful [id number] Giacomo Howard [facility] [address] [facility] [address] 07/24/2024 10:09:31 07/24/2024 10:54:46 Active or passive immunization 041104462 Z23 will get at pharmacy Adult [facility] examination 863439091 Z00.01 no concerns today he states that he will work on diet and exercise Hypercholesterolemia 136 55012 E78.00 mild but is sl elevated will be better with diet after long discussion LDL 141 will see him in 6 months and rechk lab cholestero l is unchanged from last year told him he really needs to be more careful Depression screening 171 830672 Z13.31 neg Pain of ri ght knee joint 8212510940 32737 M25.561 [id number] Giacomo Howard [facility] [address] [facility] [address] 07/30/2025 10:25:25 07/30/2025 11:42:43 Screening for cardiovascular system disease 219544191 Z13.6 will chk lab Screening for malignant neoplasm of colon 356349938 Z12.11 utd Depression screening 171 754766 Z13.31 neg Hypercholesterolemia 136 48454 E78.00 mild but is sl elevated will be better with diet after long discussion LDL 141 will see him in 6 months and rechk lab cholestero l is unchanged from last year told him he really needs to be more careful Preventive procedure 169 969962 Z00.00 94942600 no concerns today he states that he will work on diet and exercise Benign pro static hyperplasia without outflow obstruction 965987029 N40.0 1678022 Health Concerns Section Related Observation LastModified by Organization Detai ls LastModified Time None Recorded Concern Status LastModified by Organization Details LastModified Time None Recorded Advance Directives Directive None Recorded Payers Insurance Date Sequence Insurance Name Policy Number Policy Kidd Covered Member ID Kidd Member ID Guarantor Name 07/27/2025 2 [facility] INDEMNITY PLAN (INDEMNITY) [id number] Mirella Daniel Eusebio [id number] Suhas Kaplan 06/01/2019 1 [facility] [employer] [facility] IN[facility] (INDEMNITY) [id number] Mirella Daniel Eusebio [id number] Suhas Kaplan 07/29/2025 1 MEDICARE B-[place]: [facility] [employer] Suhas Strauss Eusebio [id number] Suhas Kaplan Notes Date Note Type [...] reportsno vision problems.ROS as noted in the [facility] Giacomo Howard, [address], [address], [facility] 07/07/2021 10:55:15 2 text/html Annual [...] seen by dermatologistROS as noted in the [facility] Giacomo Howard, [address], [address], [facility] 07/13/2022 09:16:25 3 text/html Annual [...] vision, patient reportsno vision problems.recently seen by bluing oven tender no issuesROS as noted in the HPI relates has had an occasional bout of indigestion with belching and midsternal discomfort but this has been a pattern for years Giacomo Howard DO [address] [place] [address], [address], [facility] 07/19/2023 09:48:08 4 text/html Annual [...] noted in the HPI Giacomo Howard DO [address] [place] [address], [address], [facility] 07/24/2024 10:52:03 5 text/html Medicare [...] extremely activehaving floaters Giacomo Howard, DO [address] [facility], [place], [address], [facility] 07/30/2025 11:34:12
== END 2025-08-30 11:20 | disposition home or self-care (01) ==
LOC: HO.HGS 10:39
PROVIDERS: PCP Internal Medicine; Visit Provider Surgery
DX: L81.1 Chloasma (principal)
CPT/HCPCS: 99024

== ENCOUNTER → 2025-08-30 10:39 | Outpatient (BNVA) | payer MEDICARE, OTHER, SELFPAY | PROVIDERS: PCP Internal Medicine; Visit Provider Surgery | DX: Z48.02 Encounter for removal of sutures (principal) | CPT/HCPCS: 99212 ==

== ENCOUNTER 2025-09-17 12:56 | Outpatient (REF) | payer MEDICARE, OTHER, SELFPAY | END 2025-09-17 12:57 | disposition home or self-care (01) | LOC: HO.LNP 12:56 | PROVIDERS: PCP Internal Medicine; Visit Provider Surgery | DX: L81.8 Other specified disorders of pigmentation (principal); R22.2 Localized swelling, mass and lump, trunk | CPT/HCPCS: 11402; 88304; 88305 ==

== ENCOUNTER 2025-09-17 12:56 | Outpatient (AMB) | payer MEDICARE, OTHER, SELFPAY ==
[2025-09-17 12:58] VITALS: BMI 29.0
--- NOTE | 2025-09-17 12:58 | MHC.OFFVIS ---
Vital Signs 09/17/25 12:58 Height 5 ft 7 in Weight 185 lb BMI 29.0 Intake Visit Reasons: excise chest lesion Intake Note: Patient is seen for office procedure: Excision of chest lesion. Pt c/op: reports re- excision site incision healed well. *Needs s/p with Nilo Santos Director Strategic Planning Required: No Accompanied by: Spouse Allergies No Known Allergies Allergy (Verified 09/17/25 13:05) Medication List - Last Reconciled 09/17/25 by Carlos Smith MD rosuvastatin 10 mg PO DAILY HPI Comments Details: 70-year-old male patient returning following excision of a atypical junctional melanocytic proliferation. Pathology revealed separate dermal scar completely excised but a junctional melanocytic proliferation with mild atypia located at the tip, suctioned away from the dermal scar. The lesion is not seen on ink however as it is close to the edge of the specimen, close follow-up is recommended. If there is residual lesion present, consider re-excision if clinically appropriate. He returns today for wider excision to assure complete removal of this possible 2nd lesion. [facility] Surgical History Hx of left knee surgery Review of Systems Const All systems reviewed & are unremarkable except as noted in HPI and below Physical Exam Vital Signs: BMI result Body Mass Index 29.0 Const General: comfortable Nutritional Appearance: well nourished Orientation/consciousness: patient oriented x3 Chest Chest/axillae images:  1. Well-healed incision in the midsternum. Slightly nodular feel located at the tip of the lesion suggestive of a 2nd melanocytic proliferation. Skin Other: Chest as noted above Neuro General: patient oriented x3 Office Procedures Excision Details: Preoperative diagnosis: Atypical junctional melanocytic proliferation sternum Postoperative diagnosis: Same Procedure: Wider excision atypical junctional melanocytic proliferation sternum Surgeon: Carlos Smith MD Data Examination Clerk: None Anesthesia: Lidocaine 1% with epinephrine Indications for procedure: Previous excision of a atypical junctional melanocytic proliferation with a 2nd lesion noted at the tip. He returns today for wider excision. Operative findings: Nodular lesion noted in the tip of the previous excision included in the wider excision. Specimen: Skin of sternum, atypical junctional melanocytic proliferation Estimated blood loss: Less than 2 mL Complications: None Procedure details: Patient was brought to the procedure room and placed in a supine position. After assuring informed consent confirming the site of surgery, the skin was prepped with Betadine and draped in a sterile fashion. Local anesthesia was then infiltrated circumferentially along the lesion. An elliptical incision was made in the upper portion of the incision to include the nodular finding at the tip of the previous incision. A total of 1.5 cm was excised. Incision was carried down into the subcutaneous tissue down to fascia. This was then excised and sent to pathology for further examination. Hemostasis was assured using light pressure. Skin was then closed using interrupted 3-0 nylon sutures. Sterile dressings consisting of a 2 x 2 gauze and Tegaderm were then applied. The patient tolerated the procedure well was discharged to home in stable condition. 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 Orders: Orders Surgical Today L81.8 - Other specified disorders of pigmentation Coding Level of Care Code Procedure Only Diagnoses Atypical melanocytic hyperplasia L81.8 CPT Codes Trunk/Arms/Legs - CPT: 39724-kkfxf/arms/legs 1.1-2cm ([id number])
--- OUTSIDE RECORDS SUMMARY | 2025-09-17 16:38 | XMS_ITS | Encounter Summary ---
Author Organization [facility] Address [address] [place] [address] Phone Care Team Providers Care Suture Polisher Name Role Phone Unknown, Unknown Primary Care Provider Giacomo Monahan DO Primary Care Provider [phone] Encounter Details Date Type Department Care Team (Latest Contact Info) Description 02/28/2019 Transcribe Orders [facility] [address] [address] Juan Jose Amaya MD [address] [place] [address], [address] [place] [address] [email or web address] Elevated prostate specific antigen (PSA) (Primary Dx) [...] EDT) PSA 0.69 0 - 4.00 ng/mL [facility] Blood 02/28/2019 7:36 AM EDT 02/28/2019 8:04 AM EDT us Juan Jose Amaya MD LAB BLOOD BKR ORDERABLES Final Result [facility] [address] [place] [address] documented in this encounter Visit Diagnoses Diagnosis Elevated prostate specific antigen (PSA)- Primary documented in this encounter Care Teams Suture Polisher Relationship Specialty Start Date End Date Unknown, Unknown, MD PCP - General 02/15/18 08/11/20 Giacomo Howard DO [email or web address] PCP - General Internal Medicine 08/12/20 documented as of this encounter Additional Source Comments The information contained in this document represents components of the legal health record. It is not the complete legal health record.[facility]
--- OUTSIDE RECORDS SUMMARY | 2025-09-17 16:38 | XMS_ITS | Data Portability ---
Author Organization [facility] Telehealth Patient Home Address [address] [place] [address] Assessment Encounter Date Assessment Date Assessment LastModified [...] recorded. Lab PSA, serum or plasma 2024 [facility], [address] [place] [address], [address], 11:29:34 lipid panel, blood 2024 025 [facility], [address] [place] [address], [address], 12:00:36 hemoglobin , gastrointe stinal, stool 2024 [facility], [address] [place] [address], [address], 11:29:34 CBC w/ auto diff 2024 025 [facility], [address] [place] [address], [address], 5 12:00:36 CMP, serum or plasma 2024 025 [facility], [address] [place] [address], [address], 5 12:00:36 lipid panel, blood 2023 024 [facility], [address] [place] [address], [address], 4 11:18:59 CMP, serum or plasma 2023 024 [facility], [address] [place] [address], [address], 4 11:18:59 CBC w/ auto diff 2023 024 [facility], [address] [place] [address], [address], 4 11:19:00 PSA, serum or plasma 2023 024 [facility], [address] [place] [address], [address], 4 11:19:00 vitamin B12, serum 2023 024 [facility], [address] [place] [address], 89758, 4 11:18:59 lipid panel, blood 2022 023 [facility], [place], [address], 3 13:20:24 CMP, serum or plasma 2022 023 [facility], [place], [address], 3 13:45:50 PSA, serum or plasma 2022 023 [place] [facility], [place], [address], 3 13:39:04 CBC 2022 023 [facility], [place], [address], 3 09:50:44 lipid panel, blood 2021 022 [facility], [address] [place] [address], [address], 2 11:26:10 PSA, serum or plasma 2021 022 [facility], [address] [place] [address], [address], 2 09:20:31 vitamin D, 25-hydroxy , total, serum 2021 022 [facility], [address] [place] [address], [address], 2 09:20:31 CMP, serum or plasma 2020 021 [facility], [address] [place] [address], [address], 1 08:58:18 CBC w/ auto diff 2020 021 [facility], [address] [place] [address], 7[address], 1 11:17:44 lipid panel, blood 2020 021 [facility], [address] [place] [address], [address], 1 08:58:18 PSA, serum or plasma 2020 021 [facility], [address] [place] [address], 89[address], 1 11:17:43 vitamin D, 25-hydroxy , total, serum 2020 021 [facility], [address] [place] [address], 018[address], 1 11:17:44 hepatitis C Ab, serum 2020 021 [facility], [address] [place] [address], 40976, 1 10:55:48 Referral None recorded. Procedures None recorded. Surgeries None recorded. Imaging XR, knee, 3 view 2023 024 [facility] (Imaging), [address] [place] [address], [address], 4 08:56:14 CT, heart, w/o contrast, w/ coronary calcium score 2022 023 [facility], [address] [place], [address], 3 08:05:51 Medication Orders None recorded. Patient TargetsNo targets recorded. Patient Instructions Encounter Date Encounter Id Patient Instructions Last Modified By Organization Details Last Modified Time 07/30/2025 [id number] advance care planning: care instructions [email or web address] Not [...] um score No observ ation record ed. [email or web address] [facility] [address] [place], [address], 08/08/2023 13:29:41 07/25/20 24 07/25/2024 XR, knee, 3 view No observ ation record ed. [email or web address] [facility] (Medical Records) [address] [facility], [place], [address], 07/25/2024 10:49:03 Result Notes None recorded. Problems Name Problem SNOMED Code Status Onset Date Resolution Date Notes Provider Name and Address Organization Details Recorded Time Internal hemorrho ids 24809604 [facility] 8 08:41:58 Tear of meniscus of knee 979820360 Active 2017 repaired Peyton balbuena [facility] 8 08:42:12 Family history of malignan t neoplasm of prostate 845553351 Active 2017 Peyton balbuena [facility] Medicine 8 08:42:22 Hypercho lesterol emia 91388248 Active 2017 Giacomo Howard DO [address] [place] [address], [address], [facility] 5 00:16:02 Pain of right knee joint 87147213686 4100 Active 2023 Giacomo Howard DO [address] [place] [address], [address], [facility] 4 10:49:43 Benign prostati c hyperpla jordy without outflow obstruct ion 844478757 Active 2024 Giacomo Howard DO [address] [place] [address], [address], [facility] Internal [facility] 5 11:27:55 Tick bite 79793784 Active 2024 Giacomo Howard DO [address] [place] [address], [address], [facility] Internal [facility] 5 11:52:59 Problem Notes None [...] mass index (BMI) Body weight Oxygen saturation Heart rate Systolic And Diastolic Provider Name and Address Organization Details Last Updated DateTime 1 170.18 cm 30.2 kg/m2 33706.6 9 g 96 % 60 /min 140/80 mm[Hg] Lourdes Emmanuel [facility] 1 10:17:15 Date Recorded Body height Body mass index (BMI) Body weight Heart rate Oxygen saturation Systolic And Diastolic Provider Name and Address Organization Details Last Updated DateTime 2 170.18 cm 29.3 kg/m2 66509.4 1 g 52 /min 97 % 142/88 mm[Hg] Priya Raphael [facility] 2 08:56:19 Date Recorded Body weight Heart rate Oxygen saturation Systolic And Diastolic Provider Name and Address Organization Details Last Updated DateTime 07/19/2023 86643.37 g 50 /min 99 % 139/80 mm[Hg] Blanca Rios [facility] 07/19/2023 09:13:55 Date Recorded Body height Body mass index (BMI) Body weight Heart rate Oxygen saturation Systolic And Diastolic Provider Name and Address Organization Details Last Updated DateTime 4 170.18 cm 29.4 kg/m2 82569.3 7 g 51 /min 87 % 130/80 mm[Hg] Blanca Rios [facility] Internal Medicine 4 10:16:44 Date Recorded Body height Body mass index (BMI) Body weight Heart rate Oxygen saturation Systolic And Diastolic Provider Name and Address Organization Details Last Updated DateTime 5 170.18 cm 29.1 kg/m2 60966.4 6 g 46 /min 98 % 154/96 mm[Hg] Laury Schulz [facility] Medicine 5 10:54:54 Social History Question Answer Notes LastModified by Organizat ion Details LastModified Time Tobacco Smoking Status Never Smoker Not Available [facility] 08/26/2020 03:36:24 What Was The Date Of Your Most Recent Tobacco Screening? 07/30/2025 [email or web address] Information not available 07/30/2025 Sex: Unknown Functional Status Question Answer Note LastModified by Organization D etails LastModified Time Do you or have you ever used any other forms of tobacco or nicotine? No [email or web address] Information not available 07/19/2023 Mental Status None recorded. Family History Nothing Reported. Medical History No medical history recorded. Immunizations Vaccine Type Date Status Note Provider Nam e and Address Organization Details Recorded Time COVID-19, mRNA, LNP-S, PF, 30 mcg/0.3 mL dose 1 completed SHERRON balbuena [facility] Internal [facility] 07/13/2022 08:48:01 influenza, unspecified formulation 5 completed Elbert balbuena [facility] 09/04/2025 08:43:41 Influenza, split virus, quadrivalent, preservative 9 completed SHERRON balbuena [facility] 07/13/2022 08:48:01 Tdap 9 olivia balbuena [facility] 07/10/2019 09:06:27 Pneumococcal conjugate PCV 13 9 completed SHERRON balbuena [facility] Internal [facility] 07/13/2022 08:48:01 zoster live 09/15/201 9 olivia balbuena [facility] 07/10/2019 09:06:58 Past Encounters Encounter ID Performer Location Encounter Start Date Encounter Closed Date Diagnosis/Indication Diagnosis SNOMED-CT Code Diagnosis ICD10 Code Diagnosis IMO Codes Diagnosis Note [id number] Giacomo Howard [facility] [address] [facility] [address] 05/17/2018 13:47:25 05/17/2018 15:03:52 Hypercholesterolemia 12727968 E78.00 mild but is sl elevated will be better with diet after long discussion Eczema 32299981 L30.9 [id number] Giacomo Howard [facility] [address] [facility] [address] 12/01/2018 09:09:41 12/01/2018 09:42:44 Hypercholesterolemia 10312405 E78.00 mild but is sl elevated will be better with diet after long discussion LDL 141 will see him in 6 months and rechk lab [id number] Giacomo Howard [facility] [address] [facility] [address] [address] 06/01/2019 08:58:44 06/01/2019 10:37:20 Hypercholesterolemia 32936128 E78.00 mild but is sl elevated will be better with diet after long discussion LDL 141 will see him in 6 months and rechk lab cholestero l is unchanged from last year told him he really needs to be more careful Hepatitis C screening 41 1548327 Z11.59 Active or passive immunization 855854706 Z23 will get at pharmacy [id number] Giacomo Howard [facility] [address] [facility],[place] [address] 12/28/2019 11:33:17 12/28/2019 12:12:51 Adult health examination 366467337 Z00.00 no concerns today he states that he will work on diet and exercise Active or passive immunization 848171146 Z23 will get at pharmacy Hepatitis C screening 41 7196022 Z11.59 [id number] Giacomo Howard [facility] [address] [facility] [address] 07/07/2021 10:07:32 07/07/2021 15:18:06 Active or passive immunization 134117955 Z23 will get at pharmacy Adult heal th examination 841773536 Z00.00 no concerns today he states that he will work on diet and exercise [id number] Giacomo Howard, [facility] [address] [facility] [address] 07/13/2022 08:47:41 07/13/2022 09:20:10 Active or passive immunization 009823881 Z23 will get at pharmacy Adult [facility] th examination 538935971 Z00.00 no concerns today he states that he will work on diet and exercise [id number] Giacomo Howard [facility] [address] [facility] [address] 07/19/2023 09:09:31 07/19/2023 09:56:29 Hypercholesterolemia 67559732 E78.00 mild but is sl elevated will be better with diet after long discussion LDL 141 will see him in 6 months and rechk lab cholestero l is unchanged from last year told him he really needs to be more careful [id number] Giacomo Howard [facility] [address] [facility] [address] [address] 07/24/2024 10:09:31 07/24/2024 10:54:46 Active or passive immunization 260638381 Z23 will get at pharmacy Adult [facility] th examination 265696804 Z00.01 no concerns today he states that he will work on diet and exercise Hypercholesterolemia 136 27131 E78.00 mild but is sl elevated will be better with diet after long discussion LDL 141 will see him in 6 months and rechk lab cholestero l is unchanged from last year told him he really needs to be more careful Depression screening 171 966322 Z13.31 neg Pain of ri ght knee joint 5781244760 04441 M25.561 [id number] Giacomo Howard [facility] [address] [facility] [address] [address] 07/30/2025 10:25:25 07/30/2025 11:42:43 Screening for cardiovascular system disease 606289897 Z13.6 will chk lab Screening for malignant neoplasm of colon 275949075 Z12.11 utd Depression screening 171 809467 Z13.31 neg Hypercholesterolemia 136 26567 E78.00 mild but is sl elevated will be better with diet after long discussion LDL 141 will see him in 6 months and rechk lab cholestero l is unchanged from last year told him he really needs to be more careful Preventive procedure 169 456951 Z00.00 26395866 no concerns today he states that he will work on diet and exercise Benign pro static hyperplasia without outflow obstruction 930612603 N40.0 [id number] Health Concerns Section Related Observation LastModified by Organization Detai ls LastModified Time None Recorded Concern Status LastModified by Organization Details LastModified Time None Recorded Advance Directives Directive None Recorded Payers Insurance Date Sequence Insurance Name Policy Number Policy Kidd Covered Member ID Kidd Member ID Guarantor Name 07/27/2025 2 [facility] IN[facility]MN[facility]AN (INDEMNITY) [id number] 8 Mirella Daniel Eusebio [id number] Suhas Kaplan 06/01/2019 1 [facility] INDEMNITY PLAN (INDEMNITY) [id number] 8 Mirella Daniel Eusebio [id number] Suhas Kaplan 07/29/2025 1 MEDICARE [place]: [employer] Suhas Kaplan [id number] Suhas Kaplan Notes Date Note Type [...] reportsno vision problems.ROS as noted in the [facility] Giacomo Howard [address], [address], [facility] 07/07/2021 10:55:15 2 text/html Annual [...] seen by dermatologistROS as noted in the [facility] Giacomo Howard [address], [address], [facility] 07/13/2022 09:16:25 3 text/html Annual [...] vision, patient reportsno vision problems.recently seen by solutions sales executive no issuesROS as noted in the HPI relates has had an occasional bout of indigestion with belching and midsternal discomfort but this has been a pattern for years Giacomo ArechigaElisabeth TserichDO [address] [place] [address], [address], [facility] 07/19/2023 09:48:08 4 text/html Annual [...] as noted in the HPI Giacomo ArechigaElisabeth Howard DO [address] [place] [address], [address], [facility] 07/24/2024 10:52:03 5 text/html Medicare [...] extremely activehaving floaters Giacomo Howard, DO [address] [facility], [place], [address], [facility] Medicine 07/30/2025 11:34:12
--- OUTSIDE RECORDS SUMMARY | 2025-09-17 16:38 | XMS_ITS | Encounter Summary ---
Author Organization [facility] Address [address] [place], [place] [id number] Phone Care Team Providers Care Manager Corporate Name Role Phone Unknown, Unknown Primary Care Provider Giacomo Monahan DO Primary Care Provider [phone] Encounter Details Date Type Department Care Team (Late st Contact Info) Description 08/11/2020 Ancillary Orders Virtual Department [address] [place] [address] Jasmeet Felder DC [address] [place] [address] Low back pain, unspecified back pain laterality, [...] thigh documented in this encounter Care Teams Manager Corporate Relationship Specialty Start Date End Date Unknown, Unknown, PCP - General 02/15/18 08/11/20 Giacomo Howard DO [email or web address] PCP - General Internal Medicine 08/12/20 documented as of this encounter Additional Source Comments The information contained in this document represents components of the legal health record. It is not the complete legal health record.[facility]
--- OUTSIDE RECORDS SUMMARY | 2025-09-17 16:38 | XMS_ITS | Encounter Summary ---
Author Organization [facility] Address [address] [place] [address] Phone Care Team Providers Care Livestock Laborer Name Role Phone Unknown, Unknown Primary Care Provider Giacomo Monahan DO Primary Care Provider [phone] Encounter Details Date Type Department Care Team ([facility] st Contact Info) Description 02/15/2018 Transcribe Orders [facility] [address] [place] [address] Giacomo Howard DO [address] [facility] [place], [place] [id number] Elevated prostate specific antigen (PSA) (Primary Dx) [...] EDT) PSA 1.55 0 - 4.00 ng/mL [facility] Blood 02/15/2018 10:3 6 AM EDT 02/15/2018 10:38 AM EDT us Giacomo Howard DO LAB BLOOD BKR ORDERABLES Final R esult [facility] [address] [place] [address] documented in this encounter Visit Diagnoses Diagnosis Elevated prostate specific antigen (PSA)- Primary documented in this encounter Care Teams Livestock Laborer Relationship Specialty Start Date End Date Unknown, Unknown, PCP - General 02/15/18 08/11/20 Giacomo Howard DO [email or web address] PCP - General Internal Medicine 08/12/20 documented as of this encounter Additional Source Comments The information contained in this document represents components of the legal health record. It is not the complete legal health record.[facility]
--- OUTSIDE RECORDS SUMMARY | 2025-09-17 16:38 | XMS_ITS | Continuity of Care Document ---
Author Organization [facility] Address [address] [facility] [place] [address] [place] [address] Assessment Encounter Date Assessment Date Assessment LastModified [...] Details Last Modified Time Details Appointments None recorded . Lab PSA, serum or plasma [facility], [address] [place] [address], [address], 11:29:34 lipid panel, blood [facility], [address] [place] [address], [address], 12:00:36 hemoglob in, gastroin testinal , stool [facility], [address] [place] [address], [address], 5 11:29:34 CBC w/ auto diff 2 025 [facility], [address] [place] [address], [address], 12:00:36 CMP, serum or plasma [facility], [address] [place] [address], [address], 12:00:36 Referral None recorded . Procedures None recorded . Surgeries None recorded . Imaging None recorded . Medication Orders None recorded . Patient TargetsNo targets recorded. Patient Instructions Encounter Date Encounter Id Patient Instructions Last Modified By Organization Details Last Modified Time 07/30/2025 [id number] advance care planning: care instructions [email or web address] Not available 07/30/2025 11:28:16 Discussed and explained advance directives such as standard forms to the . Face to face discussion lasted for a duration of ___ minutes. Not available 07/09/2025 14:14:08 Reason for Referral None Reported. Results Created Date Observation Date Name Description Value Unit Range Abnormal Flag Note LastModifiedBy Organization Detail LastModifiedTime Result Notes None recorded. Problems Name Problem SNOMED Code Status Onset Date Resolution Date Notes Provider Name and Address Organization Details Recorded Time Internal hemorrho ids 36199576 Active 2017 Peyton balbuena [facility] 8 08:41:58 Tear of meniscus of knee 016875039 Active 2017 repaired Peyton balbuena [facility] 8 08:42:12 Family history of malignan t neoplasm of prostate 145114024 Active 2017 Peyton balbuena [facility] 8 08:42:22 Hypercho lesterol emia 05593734 Active 2017 Giacomo Howard DO [address] [place] [address], [address], [facility] [place] 5 00:16:02 Pain of right knee joint 97212970682 4100 Active 2023 Giacomo Howard DO [address] [place], [address], [facility], [place] 4 10:49:43 Benign prostati c hyperpla jordy without outflow obstruct ion 710167935 Active 2024 Giacomo Howard, [address] [place], [address], [facility], [place] 5 11:27:55 Tick bite 38541894 Active 2024 Giacomo Howard [address] [place], [address], [facility], [place] 11:52:59 Problem Notes None recorded. [...] Updated DateTime 5 170.18 cm 29.1 kg/m2 12345.4 6 g 46 /min 98 % 154/96 mm[Hg] Laury Schulz [facility] 5 10:54:54 Social History Question [...] other forms of tobacco or nicotine? No [email or web address] Information not available 07/19/2023 Mental Status None recorded. Family History Nothing Reported. Medical History No medical history recorded. Immunizations Vaccine Type Date Status Note Provider Nam e and Address Organization Details Recorded Time COVID-19, mRNA, LNP-S, PF, 30 mcg/0.3 mL dose 1 completed SHERRON balbuena [facility] Internal [facility] 07/13/2022 08:48:01 influenza, unspecified formulation 5 completed Elbert balbuena [facility] 09/04/2025 08:43:41 Influenza, split virus, quadrivalent, preservative 9 completed SHERRON balbuena [facility] 07/13/2022 08:48:01 Tdap 9 olivia balbuena [facility] 07/10/2019 09:06:27 Pneumococcal conjugate PCV 13 9 olivia balbuena [facility] 07/13/2022 08:48:01 zoster live 9 olivia balbuena [facility] 07/10/2019 09:06:58 Past Encounters Encounter ID Performer Location Encounter Start Date Encounter Closed Date Diagnosis/Indication Diagnosis SNOMED-CT Code Diagnosis ICD10 Code Diagnosis IMO Codes Diagnosis Note [id number] Giacomo Howard DO [facility] [address] [facility] [address] 07/30/2025 10:25:25 07/30/2025 11:42:43 Screening for cardiovascular system disease 068878882 Z13.6 will chk lab Screening for malignant neoplasm of colon 327301159 Z12.11 utd Depression screening 171 059415 Z13.31 neg Hypercholesterolemia 136 73652 E78.00 mild but is sl elevated will be better with diet after long discussion LDL 141 will see him in 6 months and rechk lab cholestsean l is unchanged from last year told him he really needs to be more careful Preventive procedure 169 850708 Z00.00 86268821 no concerns today he states that he will work on diet and exercise Benign pro static hyperplasia without outflow obstruction 443575264 N40.0 6946407 Health Concerns Section Related Observation LastModified by Organization Detai ls LastModified Time None Recorded Concern Status LastModified by Organization Details LastModified Time None Recorded Payers Encounter Date Sequence Insurance Name Policy Number Policy Kidd Covered Member ID Kidd Member ID Guarantor Name 07/30/2025 2 [facility]INDEMNITY) [id number] 8 Mirella Daniel Eusebio [id number] Suhas Kaplan 07/30/2025 1 MEDICARE [place]: [employer] Suhas Strauss Eusebio [id number] Suhas Kaplan Notes Date Note Type [...] extremely activehaving floaters Giacomo Howard, DO [address] [facility], [place], [address], [facility], [place] 07/30/2025 11:34:12
--- OUTSIDE RECORDS SUMMARY | 2025-09-17 16:38 | XMS_ITS | Clinical Summary ---
Author Organization [facility] Address [address] [place] [address] Phone Care Team Providers Care Cook Tortilla Name Role Phone Giacomo Howard DO Primary Care Provider [phone] Social History Tobacco Use Types Packs/Day Years [...] file Medical Devices Not on file Insurance [facility] [employer] MEDICARE SUPPLEMENT MEDICARE PART A & B [facility] [employer] MEDICARE SUPPLEMENT MEDICARE PART A & B [facility] [employer] MEDICARE SUPPLEMENT MEDICARE PART A & B [facility] [employer] MEDICARE SUPPLEMENT MEDICARE PART A & B [facility] [employer] MEDICARE SUPPLEMENT MEDICARE PART A & B [facility] [employer] MEDICARE SUPPLEMENT MEDICARE PART A & B [facility] [employer] MEDICARE SUPPLEMENT MEDICARE PART A & B [employer] MEDICARE SUPPLEMENT MEDICARE PART A & B [employer] MEDIC[employer] SUPPLEMENT MEDICARE PART A & B Care Teams Cook Tortilla Relationship Specialty Start Date End Date Giacomo Howard DO [email or web address] PCP - General Internal Medicine 08/12/20 Additional Source Comments The information contained in this document represents components of the legal health record. It is not the complete legal health record.[facility]
== END 2025-09-17 13:33 | disposition home or self-care (01) ==
LOC: HO.HGS 12:56
PROVIDERS: PCP Internal Medicine; Visit Provider Surgery
DX: L81.8 Other specified disorders of pigmentation (principal)
CPT/HCPCS: 11402

== ENCOUNTER 2025-09-24 13:29 | Outpatient (AMB) | payer MEDICARE, OTHER, SELFPAY ==
[2025-09-24 13:36] VITALS: BMI 29.0
--- NOTE | 2025-09-24 13:36 | A.OFFVIS_ITS ---
Vital Signs 09/24/25 13:36 Height 5 ft 7 in Weight 185 lb 0.014 oz BMI 29.0 Intake Visit Reasons: post off proc, chest lesion Intake Note: Patient presents for follow-up s/p Atypical melanocytic hyperplasia.( Office procedure 09/17/2025 ABHIJIT) Pt c/o: no complaints. Brake Lining Curer Required: No Accompanied by: Self / Same As Patient Allergies No Known Allergies Allergy (Verified 09/24/25 13:38) HPI HPI post off proc, chest lesion: Details: Doing well, here for suture removal wound check. No concerns. Initially had some bleeding on the 1st day but this resolved. Denies fevers or chills. De nies any other drainage. Denies changes to the skin. Denies significant pain [facility] Surgical History (Updated 09/24/25 @ 14:07 by Nilo Palma PA-C) History of surgical removal of skin lesion (~09/17/25) Hx of left knee surgery Family History Other Family history unknown Social History Alcohol intake: unknown Patient Tobacco Use Status: Tobacco use Unknown Review of Systems Const All systems reviewed & are unremarkable except as noted in HPI and below Physical Exam Vital Signs: BMI result Body Mass Index 29.0 Const General: comfortable and no acute distress Orientation/consciousness: patient oriented x3 Skin Other: Chest excision site: Sutures in place. Intact, no surrounding erythema, no palpable fluid collection, nontender. 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 Sarah HERNANDEZ FACS Code(s): Z98.890 - Other specified postprocedural states; Z87.2 - Personal history of diseases of the skin and subcutaneous tissue Category: Surgical Plan [age] year male returning to the office for suture removal and wound check following a wider excision of an atypical melanocyte. He is doing well, has no concerns. On exam the incision site appears well healed, 4 sutures removed in office. There were no concerns for infection. Unfortunately the pathology results have not returned, informed the patient that we will reach out when we get the results. No longer requiring follow up, can follow up as needed with any concerns in the future. 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
--- OUTSIDE RECORDS SUMMARY | 2025-09-24 15:31 | XMS_ITS | Encounter Summary ---
Author Organization [facility] Address [address] [place] [address] Phone Care Team Providers Care Pipe Organ Tuner And Repairer Name Role Phone Unknown, Unknown Primary Care Provider Giacomo Monahan DO Primary Care Provider [phone] Encounter Details Date Type Department Care Team ([facility] st Contact Info) Description 02/15/2018 Transcribe Orders [facility] [address] [place] [address] Giacomo Howard DO [address] [facility] [address] [place], [place] [id number] Elevated prostate specific antigen (PSA) (Primary Dx) [...] EDT) PSA 1.55 0 - 4.00 ng/mL [facility] Blood 02/15/2018 10:3 6 AM EDT 02/15/2018 10:38 AM EDT us Giacomo Howard DO LAB BLOOD BKR ORDERABLES Final R esult [facility] [address] [place] [address] documented in this encounter Visit Diagnoses Diagnosis Elevated prostate specific antigen (PSA)- Primary documented in this encounter Care Teams Pipe Organ Tuner And Repairer Relationship Specialty Start Date End Date Unknown, Unknown, PCP - General 02/15/18 08/11/20 Giacomo Howard DO [email or web address] PCP - General Internal Medicine 08/12/20 documented as of this encounter Additional Source Comments The information contained in this document represents components of the legal health record. It is not the complete legal health record.[facility]
--- OUTSIDE RECORDS SUMMARY | 2025-09-24 15:31 | XMS_ITS | Encounter Summary ---
Author Organization [facility] Address [address] [place], [place] [id number] Phone Care Team Providers Care Security Installation Technician Name Role Phone Unknown, Unknown Primary Care Provider Giacomo Monahan DO Primary Care Provider [phone] Encounter Details Date Type Department Care Team (Late st Contact Info) Description 08/11/2020 Ancillary Orders Virtual Department [address] [place] [address] Jasmeet Felder DC [address] [place] [address] Low back pain, unspecified back pain laterality, [...] thigh documented in this encounter Care Teams Security Installation Technician Relationship Specialty Start Date End Date Unknown, Unknown, PCP - General 02/15/18 08/11/20 Giacomo Howard DO [email or web address] PCP - General Internal Medicine 08/12/20 documented as of this encounter Additional Source Comments The information contained in this document represents components of the legal health record. It is not the complete legal health record.[facility]
--- OUTSIDE RECORDS SUMMARY | 2025-09-24 15:31 | XMS_ITS | Encounter Summary ---
Author Organization [facility] Address [address] [place] [address] Phone Care Team Providers Care Director Housekeeping Name Role Phone Unknown, Unknown Primary Care Provider Giacomo Monahan DO Primary Care Provider [phone] Encounter Details Date Type Department Care Team (Latest Contact Info) Description 02/28/2019 Transcribe Orders [facility] [address] [address] Juan Jose Amaya MD [address] [place] [address], [address] [place] [phone] [email or web address] Elevated prostate specific antigen [...] EDT) PSA 0.69 0 - 4.00 ng/mL [facility] Blood 02/28/2019 7:36 AM EDT 02/28/2019 8:04 AM EDT us Juan Jose Amaya MD LAB BLOOD BKR ORDERABLES Final Result [facility] [address] [place] [address] documented in this encounter Visit Diagnoses Diagnosis Elevated prostate specific antigen (PSA)- Primary documented in this encounter Care Teams Director Housekeeping Relationship Specialty Start Date End Date Unknown, Unknown, MD PCP - General 02/15/18 08/11/20 Giacomo Howard DO [email or web address] PCP - General Internal Medicine 08/12/20 documented as of this encounter Additional Source Comments The information contained in this document represents components of the legal health record. It is not the complete legal health record.[facility]
--- OUTSIDE RECORDS SUMMARY | 2025-09-24 15:31 | XMS_ITS | Clinical Summary ---
Author Organization [facility] Address [address] [place] [address] Phone Care Team Providers Care Certified Professional Midwife Name Role Phone Giacomo Howard DO Primary Care Provider [phone] Social History Tobacco Use Types Packs/Day Years [...] file Medical Devices Not on file Insurance [facility] EXTENSION MEDICARE SUPPLEMENT MEDICARE PART A & B [facility] [employer] MEDICARE SUPPLEMENT MEDICARE PART A & B [facility] [employer] MEDICARE SUPPLEMENT MEDICARE PART A & B [facility] [employer] MEDICARE SUPPLEMENT MEDICARE PART A & B [facility] [employer] MEDICARE SUPPLEMENT MEDICARE PART A & B [facility] [employer] MEDICARE SUPPLEMENT MEDICARE PART A & B Member Subscriber Plan / Payer (Ef fective 2019-Present) Name:Suhas Kaplan Member ID:[id number] Relation to Subscriber:Self Name:Suhas Kaplan Subscriber ID:[id number] Payer ID:[id number] Group ID:Not on file Type:Medicare Address: [employer] [facility] [address] [address] [facility] EXTENSION MEDICARE SUPPLEMENT MEDICARE PART A & B [facility] EX[employer]ION MEDICARE SUPPLEMENT MEDICARE PART A & B [facility] [employer] MEDICARE SUPPLEMENT MEDICARE PART A & B Care Teams Certified Professional Midwife Relationship Specialty Start Date End Date Giacomo Howard DO [email or web address] PCP - General Internal Medicine 08/12/20 Additional Source Comments The information contained in this document represents components of the legal health record. It is not the complete legal health record.[facility]
== END 2025-09-24 13:48 | disposition home or self-care (01) ==
LOC: HO.HGS 13:30
PROVIDERS: PCP Internal Medicine
DX: L81.8 Other specified disorders of pigmentation (principal); Z98.890 Other specified postprocedural states; Z87.2 Personal history of diseases of the skin and subcutaneous tissue
CPT/HCPCS: 99024

== ENCOUNTER → 2025-09-24 13:29 | Outpatient (BNVA) | payer MEDICARE, OTHER, SELFPAY | PROVIDERS: PCP Internal Medicine | DX: L81.8 Other specified disorders of pigmentation (principal); Z98.890 Other specified postprocedural states; Z87.2 Personal history of diseases of the skin and subcutaneous tissue; Z48.02 Encounter for removal of sutures | CPT/HCPCS: 99212 ==